=== PATIENT | female | born 1940 | race Caucasian/White ===

== ENCOUNTER 2019-01-04 16:03 | Inpatient (IN) ==
[2019-01-04] MEDS ORDERED: *HR* OxyCODONE/APAP 5/325 TABLET PO ONE (16:27)
[2019-01-04] MEDS ORDERED: Morphine Sulfate 2 MG/ML SYRINGE IVP ONE (17:40)
[2019-01-04] MEDS ORDERED: Ondansetron 4 MG/2 ML VIAL IVP ONE (18:04)
[2019-01-04 18:12] LABS: Basophils % 0.3 %; Eosinophils # 0.2 K/mcL (0.0-0.6); Eosinophils % 1.1 %; Hematocrit 32.1 % (35.3-44.9); Hemoglobin 10.1 g/dL (11.5-15.4); Immature Granulocytes % 0.4 % (0-4); Lymphocytes # 4.5 K/mcL (0.6-4.6); Lymphocytes % 33.7 %; Mean Corpuscular HGB Conc 31.5 g/dL (31.6-35.5); Mean Corpuscular Hemoglobin 27.2 pg (28.0-33.3); Mean Corpuscular Volume 86.3 fL (83.0-100.0); Mean Platelet Volume 10.6 fL (9.4-12.4); Monocytes # 0.7 K/mcL (0.0-1.3); Monocytes % 5.5 %; Neutrophils # 7.9 K/mcL (1.6-8.9); Platelet Count 195 K/mcL (140-400); Red Blood Count 3.72 M/mcL (3.82-4.97); Red Cell Distribution Width 15.6 % (11.5-14.5); White Blood Count 13.5 K/mcL (4.3-11.1)
[2019-01-04 18:20] LABS: Prothrombin Time 11.6 Seconds (9.4-12.1)
[2019-01-04 18:22] LABS: Activated Partial Thrombo Time 28.3 Seconds (26.0-36.0)
[2019-01-04 18:31] LABS: BUN/Creatinine Ratio 16 (6-26); Blood Urea Nitrogen 10 mg/dL (8-23); Calcium 9.1 mg/dL (8.6-10.3); Carbon Dioxide 25 mEq/L (23-29); Chloride 107 mEq/L (98-107); Glucose 121 mg/dL (70-105); Osmolality,Calculated 294 (280-300); Potassium 3.7 mEq/L (3.5-5.1); Sodium 142 mEq/L (136-145); eGFR For African Americans > 60 (> 60); eGFR For Non-African Americans > 60 (> 60)
--- NOTE | 2019-01-04 18:32 | Internal Med History&Physical ---
Date of Encounter: 01/04/19 Time of Encounter: 18:28 Internal Medicine - H&P: HPI Chief complaint: Left Hip pain Admitted From: Home Plans for Post Hospital Care: Home History of present illness: Ms. Prescott is a 78 year old female with past medical history significant for coronary artery disease status post coronary artery bypass graft in 2015, hypertension, diabetes, hyperlipidemia, ? TIA presents to the emergency room after a mechanical fall on her left side. Patient reports that the moving the lawnmower and it was on the slope at the house on the gravel. She reports that lawnmower was coming down on the slope and her and see how on her back on her left hip. Patient reports since then she has been having left hip pain. Patient reports of left hip pain, aching, 10 out of 10 in severity, radiates to her left leg, aggravates with movement and relieved by medications and rest. She denied any tingling, numbness, and weakness. She denies any nausea, vomiting and abdominal pain. Upon initial presentation to the emergency room patient's vitamin was stable. Patient has a x-ray done which shows some L left femoral neck fracture. Orthopedic surgery was called by ED physician. Patient received Percocet 1, and morphine 4 mg 1 in the emergency department. Past Med Surg Social Fam HX - Past Medical History Medical history: coronary artery disease, diabetes, GERD, hyperlipidemia, hypertension Additional medical history: tilit. test Psychiatric history: no psych history - Past Surgical History Surgical History: appendectomy, cataract, cholecystectomy, coronary bypass (CABG), hysterectomy - Social History Smoking Status: Never smoker Smokeless Tobacco Status: No Alcohol use: none Drug use: none - Family History Father Living Status: Hx Family Cardiac Disorders: Yes ([place]) Mother Living Status: Hx Family Cancer: Yes (colon cancer) Brother Living Status: Sister Hx Family Cardiac Disorders: Yes ([place]) Internal Medicine - H&P: Meds Aspirin Enteric Coated [Aspirin EC] 81 mg PO QAM 02/16/15 [History] Metformin [Glucophage] 500 mg PO BID 02/16/15 [History] Atorvastatin [Lipitor] 40 mg PO HS 05/15/18 [History] Levothyroxine [Synthroid] 50 mcg PO QAM 05/15/18 [History] Nitroglycerin [Nitrostat] 0.4 mg SL Q5MIN PRN 05/15/18 [History] Sertraline [Zoloft] 100 mg PO DAILY 05/15/18 [History] Temazepam [Restoril] 15 mg PO HS PRN 05/15/18 [History] Cephalexin [Keflex] 250 mg PO DAILY 12/02/18 [History] Omeprazole [PriLOSEC] 40 mg PO DAILY 12/02/18 [History] Potassium Chloride [Klor-Con 10] 10 meq PO DAILY 12/02/18 [History] Metoprolol Succinate [Toprol Xl] 25 mg PO DAILY 01/04/19 [History] Allergy/AdvReac Type Severity Reaction Status Date / Time Sulfa (Sulfonamide Allergy Anaphylaxis Verified 02/16/15 20:06 Antibiotics) isosorbide [From Imdur] AdvReac Headache Verified 12/02/18 08:34 All Systems PM: A 10-system review of systems was performed and is negative for pertinent f indings except as documented above in the HPI. - Constitutional Vitals: Temp Pulse Resp BP Pulse Ox 98.4 F 86 16 166/96 94 01/04/19 16:08 01/04/19 18:08 01/04/19 18:08 01/04/19 18:08 01/04/19 18:08 General appearance: Present: cooperative, A&O X 3 Exam: General: Ill-appearing, in acute distress, HENNT: PERRLA. Head atraumatic and makes supple Eyes: No scleral icterus CVS S1 and S2 regular, no murmur RS: Clear to air entry bilaterally, no wheeze, no crackles Abdomen: Soft and nontender. Bowel sounds normal 4 Extremities: No cyanosis, clubbing, and edema, externally rotated left lower extremity Neurology: Cranial 2 through 12 normal. Motor strength 5/5 right side. Unable to perform motor strength on the left side due to significant pain. Sensation intact Integumentary: No rash and significant bruises noted Psychiatry: A and O X 3 Internal Med - H&P Results - Labs CBC & Chem 7: 01/04/19 17:33 01/04/19 17:33 Labs: Short CBC 01/04/19 Range/Units 17:33 WBC 13.5 H (4.3-11.1) K/mcL Hgb 10.1 L (11.5-15.4) g/dL Hct 32.1 L (35.3-44.9) % Plt Count 195 (140-400) K/mcL Neutrophils # 7.9 (1.6-8.9) K/mcL - Impressions ITS Impressions Knee X-Ray 01/04/19 17:34 IMPRESSION: Unremarkable radiographs left knee. Follow-up imaging recommended if pain persists or worsens following conservative management. D/ / Placido Londono / Placido Londono Interpreting Provider: Placido Londono Pelvis X-Ray 01/04/19 17:35 IMPRESSION: Subcapital left femoral neck fracture D/ / Jeremy Gomez MD / Jeremy Gomez MD Interpreting Provider: Jeremy Gomez MD Femur X-Ray 01/04/19 17:36 IMPRESSION: Subcapital left femoral neck fracture D/ / Jeremy Gomez MD / Jeremy Gomez MD Interpreting Provider: Jeremy Gomez MD - Assessment and Plan (1) Fracture of femoral neck, closed Current Visit: Yes Status: Acute Assessment and plan: Patient presents to the emergency department after mechanical fall on the left side. Patient reports significant pain on her left hip. X-ray of the hip and femur showed subcapital left femoral neck fracture which is closed. Patient received pain medication in the emergency room. - IV hydration - IV pain medication - Orthopedic surgery on consult, planned surgery on Saturday morning on January 06. Appreciate orthopedic surgery input - Patient has a significant cardiac history. He was cardiac risk index score of 2. We will consider cardiology consult for cardiac clearance if needed tomorrow. Currently patient is not complaining of any chest pain. EKG done in the emergency room was in the sinus rhythm without any acute ischemic changes. Qualifiers: Encounter type: initial encounter Laterality: left Qualified Code(s): S72.002A - Fracture of unspecified part of neck of left femur, initial encounter for closed fracture (2) CAD (coronary artery disease) Current Visit: No Status: Chronic Assessment and plan: We will continue home medication include aspirin, statin, and metoprolol. Qualifiers: Coronary Disease-Associated Artery/Lesion type: [place] artery [place] vs. transplanted heart: [place] heart Associated angina: with stable angina Qualified Code(s): I25.118 - Atherosclerotic heart disease of [place] coronary artery with other forms of angina pectoris (3) Diabetes Current Visit: No Status: Chronic Assessment and plan: Will hold oral antidiabetic agent. Will place patient on low-dose sliding scale corrective insulin. Qualifiers: Diabetes mellitus type: type 2 Diabetes mellitus senior care insulin use: without miller [employer] use Diabetes mellitus complication status: without comp lication Qualified Code(s): E11.9 - Type 2 diabetes mellitus without comp lications (4) Hypertension Current Visit: No Status: Chronic Assessment and plan: Continue metoprolol. Qualifiers: Hypertension type: essential hypertension Qualified Code(s): I10 - Essential (primary) hypertension (5) HLD (hyperlipidemia) Current Visit: Yes Status: Acute Assessment and plan: Continue statin Qualifiers: Hyperlipidemia type: unspecified Qualified Code(s): E78.5 - Hyperlipidemia, unspecified (6) GERD (gastroesophageal reflux disease) Current Visit: No Status: Chronic Assessment and plan: Continue Prilosec Qualifiers: Esophagitis presence: esophagitis presence not specified Qualified Code(s): K21.9 - Gastro-esophageal reflux disease without esophagitis (7) DVT prophylaxis Current Visit: No Status: Acute Assessment and plan: SC Heaprin - Time Spent With Patient Total time spent is greater than 50% in coordination of care (as documented) at patient's floor/unit and/or counseling patient: Greater than 35 minutes
--- NOTE | 2019-01-04 18:39 | Emergency Department Note ---
Disposition Clinical Impression: Fracture of hip Qualifiers: Encounter type: initial encounter Fracture type: closed Laterality: left Qualified Code(s): S72.002A - Fracture of unspecified part of neck of left femur, initial encounter for closed fracture Fracture of femoral neck, closed Qualifiers: Encounter type: initial encounter Laterality: left Qualified Code(s): S72.002A - Fracture of unspecified part of neck of left femur, initial encounter for closed fracture Disposition: Admitted As Inpatient Condition: Good Referrals: NONE,PCP [Primary Care Provider] - Time of Disposition: 17:35 Lower Extremity Injury HPI - General Chief Complaint: ED Extremity Injury, Lower Stated Complaint: fall Time Seen by Provider: 01/04/19 16:11 Source: patient Limitations: no limitations Nursing Notes Reviewed: Yes Vital Signs Reviewed: Yes - History of Present Illness HPI Narrative: This is a 78-year-old female who presents today after a fall. Patient states that she was trying to move a new lawnmower that she had bought when it started rolling, causing her to lose her balance and fall. She hit her left knee and left hip area. She did not hit her head. She also hit her left elbow. She denies any loss of consciousness. Describes pain in the left hip. Describes symptoms as moderate. Pain is worse with movement. Pt Subjective Complaint: hip injury, knee injury Injury location: Left hip, Left Leg, Left knee - Related Data Home Medications Medication Instructions Recorded Confirmed Aspirin Enteric Coated [Aspirin EC] 81 mg PO QAM 02/16/15 01/04/19 Metformin [Glucophage] 500 mg PO BID 02/16/15 01/04/19 Atorvastatin [Lipitor] 40 mg PO HS 05/15/18 01/04/19 Levothyroxine [Synthroid] 50 mcg PO QAM 05/15/18 01/04/19 Nitroglycerin [Nitrostat] 0.4 mg SL Q5MIN PRN 05/15/18 01/04/19 Sertraline [Zoloft] 100 mg PO DAILY 05/15/18 01/04/19 Temazepam [Restoril] 15 mg PO QPM 05/15/18 01/04/19 Cephalexin [Keflex] 250 mg PO DAILY 12/02/18 01/04/19 Omeprazole [PriLOSEC] 40 mg PO DAILY 12/02/18 01/04/19 Potassium Chloride [Klor-Con 10] 10 meq PO DAILY 12/02/18 01/04/19 Previous Rx's Medication Instructions Recorded Metoprolol [Lopressor] 25 mg PO BID tablet 05/16/18 Allergies Allergy/AdvReac Type Severity Reaction Status Date / Time Sulfa (Sulfonamide Allergy Anaphylaxis Verified 02/16/15 20:06 Antibiotics) isosorbide [From Imdur] AdvReac Headache Verified 12/02/18 08:34 All systems ED: reviewed and negative except as stated. Constitutional: Denies: fever Cardiovascular: Denies: chest pain, palpitations Gastrointestinal: Denies: abdominal pain, nausea, vomiting Musculoskeletal: Reports: other (left hip/femur and knee pain) Neurological: Denies: headache, weakness Past Medical History - Past Medical History Medical history: Reports: coronary artery disease, diabetes, GERD, hyperlipidemia, hypertension Surgical history: Reports: appendectomy, cataract, cholecystectomy, coronary bypass (CABG), hysterectomy Psychiatric history: Reports: no psych history [employer] history: Reports: no [employer] history - Social History Smoking Status: Never smoker Smokeless Tobacco Status: No Alcohol use: Reports: none Drug use: Reports: none Physical Exam - General Limitations: no limitations General appearance: alert, in no apparent distress - Head Head exam: atraumatic, normocephalic, normal inspection - Eye Eye exam: Present: normal appearance, PERRL, EOMI - Expanded Eye Exam Pupils: Left: reactive - ENT ENT exam: normal exam, normal oropharynx, mucous membranes moist - Expanded ENT Exam External ear exam: Present: normal external inspection Mouth exam: Present: normal external inspection Teeth exam: Present: normal inspection Throat exam: Present: normal inspection - Neck Neck exam: Present: normal inspection, full ROM, trachea midline - Chest Chest inspection: Present: normal inspection, symmetric chest wall rise - Respiratory Respiratory exam: Present: normal lung sounds bilaterally - Cardiovascular Cardiovascular exam: Present: regular rate, normal rhythm, normal heart sounds - Abdominal Exam Abdominal exam: Present: soft, Non-Tender. Absent: tenderness, distention, guarding, rebound, rigidity - Extremities Exam Extremities exam: Present: normal inspection, full ROM. Absent: tenderness, pedal edema - Expanded Upper Extremity Exam Shoulder exam: Present: normal inspection, full ROM Arm exam: Present: normal inspection, full ROM Elbow exam: Present: normal inspection, full ROM, abrasion. Absent: tenderness Forearm/Wrist exam: Present: normal inspection, full ROM Hand exam: Present: normal inspection, full ROM Vascular exam: Normal: capillary refill, radial pulse - Expanded Lower Extremity Exam Hip/Pelvis exam: Present: normal inspection, tenderness. Absent: deformity, dislocation, external rotation, internal rotation, shortening Upper leg exam: Present: normal inspection, tenderness Knee exam: Present: normal inspection, tenderness Lower leg exam: Present: normal inspection, tenderness Ankle exam: Present: normal inspection, full ROM Foot/toe exam: Present: normal inspection, full ROM Neurovascular/Tendon exam: Absent: motor deficit, sensory deficit, tendon deficit - Back Exam Back exam: Present: normal inspection, full ROM. Absent: tenderness - Neurological Exam Neurological exam: Present: alert, oriented X3 - Expanded Neurological Exam Patient oriented to: Present: person, place, time Coma Scale Eye Opening: Spontaneous Coma Scale Motor Response: Obeys Commands Coma Scale Verbal Response: Oriented Coma Scale Total: 15 - Psychiatric Psychiatric exam: Present: normal affect, normal mood - Skin Skin exam: Present: warm, dry, intact, normal color Course Vital Signs Temperature 98.4 F 01/04/19 16:08 Pulse Rate 84 01/04/19 16:08 Respiratory Rate 16 01/04/19 16:08 Blood Pressure 149/67 01/04/19 16:08 O2 Sat by Pulse Oximetry 99 01/04/19 16:08 Temperature 98.4 F 01/04/19 16:08 Pulse Rate 86 01/04/19 18:08 Respiratory Rate 16 01/04/19 18:08 Blood Pressure 166/96 01/04/19 18:08 O2 Sat by Pulse Oximetry 94 01/04/19 18:08 Oxygen Delivery Oxygen Delivery Room Air Extremity Injury, Lower - MDM Narrative Medical decision making narrative: Differential diagnoses includes femur contusion versus fracture versus knee contusion versus fracture. Clinical picture suggesting mechanical fall. 1715 X-ray shows hip fracture. Patient's care discussed with Dr. Winslow. He recommended admission by the hospitalist service. He will see patient the plan to do surgery on Saturday. 1734 Patient's care discussed with the hospitalist. Will admit. - Medical Records Medical records reviewed: Yes I reviewed the patient's medical records. - Lab Data Lab results reviewed: Yes I reviewed the patient's lab results. Result diagrams: 01/04/19 17:33 01/04/19 17:33 Lab Results 01/04/19 01/04/19 01/04/19 Range/Units 17:33 17:33 17:33 WBC 13.5 H (4.3-11.1) K/mcL RBC 3.72 L (3.82-4.97) M/mcL Hgb 10.1 L (11.5-15.4) g/dL Hct 32.1 L (35.3-44.9) % MCV 86.3 (83.0-100.0) fL MCH 27.2 L (28.0-33.3) pg MCHC 31.5 L (31.6-35.5) g/dL RDW 15.6 H (11.5-14.5) % Plt Count 195 (140-400) K/mcL MPV 10.6 (9.4-12.4) fL Immature Gran % 0.4 (0-4) % Seg Neutrophils % 59.0 % Lymphocytes % 33.7 % Monocytes % 5.5 % Eosinophils % 1.1 % Basophils % 0.3 % Neutrophils # 7.9 (1.6-8.9) K/mcL Lymphocytes # 4.5 (0.6-4.6) K/mcL Monocytes # 0.7 (0.0-1.3) K/mcL Eosinophils # 0.2 (0.0-0.6) K/mcL Basophils # 0.0 (0.0-0.2) K/mcL PT 11.6 (9.4-12.1) Seconds INR 1.0 APTT 28.3 (26.0-36.0) Seconds Sodium 142 (136-145) mEq/L Potassium 3.7 (3.5-5.1) mEq/L Chloride 107 (98-107) mEq/L Carbon Dioxide 25 (23-29) mEq/L BUN 10 (8-23) mg/dL Creatinine 0.63 (0.60-1.20) mg/dL Est GFR ( Amer) > 60 (> 60) Est GFR (Non-Af Amer) > 60 (> 60) BUN/Creatinine Ratio 16 (6-26) Glucose 121 H (70-105) mg/dL Calculated Osmolality 294 (280-300) Calcium 9.1 (8.6-10.3) mg/dL - Radiology Data Radiology results reviewed: Yes I reviewed the patient's radiology results. - EKG Data EKG attestation: Yes I reviewed and interpreted this EKG.
[2019-01-04] MEDS ORDERED: Naloxone 0.4 MG/ML INJ IVP PRN (18:40)
[2019-01-04] MEDS ORDERED: Ondansetron 4 MG/2 ML VIAL IVP PRN (18:40)
[2019-01-04] MEDS ORDERED: *HR* HYDROcodone/Acet 5/325 mg TABLET PO PRN ×2 (18:40→18:51)
[2019-01-04] MEDS ORDERED: Nitroglycerin 0.4 MG TAB.SUBL SL PRN (18:47)
[2019-01-04] MEDS ORDERED: *HR* Dextrose 50 % in Water (Syg) 50 ML SYRINGE IVP PRN (18:48)
[2019-01-04] MEDS ORDERED: Dextrose Gel 15 GM/37.5 ML TUBE PO PRN ×2 (18:48)
[2019-01-04] MEDS ORDERED: D5% in Water 1,000 ML IVC PRN (18:48)
[2019-01-04] MEDS: Insulin LISPRO 300 UNITS/3 ML VIAL SQ SCH (20:29)
[2019-01-04] MEDS: *HR* OxyCODONE Immed Rel 5 MG TABLET PO PRN (21:50)
[2019-01-04] MEDS: 0.9 % Sodium Chloride 1,000 ML IVC SCH (21:51)
[2019-01-05 04:42] LABS: Basophils # 0.1 K/mcL (0.0-0.2); Basophils % 0.4 %; Eosinophils # 0.2 K/mcL (0.0-0.6); Eosinophils % 1.7 %; Hematocrit 27.2 % (35.3-44.9); Immature Granulocytes % 0.3 % (0-4); Lymphocytes # 5.9 K/mcL (0.6-4.6); Lymphocytes % 46.7 %; Mean Corpuscular HGB Conc 30.9 g/dL (31.6-35.5); Mean Corpuscular Hemoglobin 27.5 pg (28.0-33.3); Mean Corpuscular Volume 88.9 fL (83.0-100.0); Mean Platelet Volume 10.9 fL (9.4-12.4); Monocytes # 0.7 K/mcL (0.0-1.3); Monocytes % 5.6 %; Neutrophils # 5.8 K/mcL (1.6-8.9); Platelet Count 165 K/mcL (140-400); Red Blood Count 3.06 M/mcL (3.82-4.97); Red Cell Distribution Width 15.8 % (11.5-14.5); Segmented Neutrophils % 45.3 %; White Blood Count 12.7 K/mcL (4.3-11.1)
[2019-01-05 04:43] LABS: Hemoglobin 8.4 g/dL (11.5-15.4)
[2019-01-05 05:10] LABS: BUN/Creatinine Ratio 15 (6-26); Blood Urea Nitrogen 9 mg/dL (8-23); Calcium 8.4 mg/dL (8.6-10.3); Carbon Dioxide 28 mEq/L (23-29); Chloride 107 mEq/L (98-107); Glucose 109 mg/dL (70-105); Osmolality,Calculated 293 (280-300); Potassium 3.7 mEq/L (3.5-5.1); Sodium 142 mEq/L (136-145); eGFR For African Americans > 60 (> 60); eGFR For Non-African Americans > 60 (> 60)
[2019-01-05] MEDS: *HR* OxyCODONE Immed Rel 5 MG TABLET PO PRN ×4 (05:35→20:12)
--- NOTE | 2019-01-05 07:24 | Orthopedic Consult Note ---
Date of Encounter: 01/05/19 Time of Encounter: 07:21 Assessment and Plan (1) Fracture of femoral neck, closed Current Visit: Yes Status: Acute I did have a long discussion with the patient regarding the diagnosis. She does have a displaced left femoral neck fracture. My recommendation is to proceed with left hip hemiarthroplasty in order to stabilize the left proximal femur and allow for early mobilization. The risks discussed included but were not limited to stiffness, bleeding, infection, blood clots, damage to neurovascular structures, tendons, ligaments, and bone. Also discussed was the risk of continued symptoms and possible need for further procedures. I did discuss the anesthesia risks including stroke, heart attack, and . I did discuss the reasonable, foreseeable postoperative course with the patient. The patient did wish to proceed and consent was obtained. I have reviewed each of the pertinent components of this chart and any other pertinent medical component(s) including but not limited to pertinent application of the chief complaint, history of present illness, current medication, medical history, allergies, family history, medical history, surgical history, social history, review of systems, vital signs, and any other portion of the pertinent patient medical record directly or indirectly involved with this patient care that is pertinent based on my medical decision process. JOHNNY Arnold Qualifiers: Encounter type: initial encounter Laterality: left Qualified Code(s): S72.002A - Fracture of unspecified part of neck of left femur, initial encounter for closed fracture History of Present Illness HPI: Ms. Prescott is a 78 year old female currently admitted to the hospitalist with a left displaced femoral neck fracture. She sustained the injury while trying to unload a riding mower when she lost her balance. She sustained a left displaced femoral neck fracture. She complains of isolated pain to the left hip, sharp and achy and worse with use and movement and better with rest. No numbness, tingling, or any other associated signs or symptoms or modifying factors. No other injuries. Past Med Surg Social Fam HX - Past Medical History Medical history: coronary artery disease, diabetes, GERD, hyperlipidemia, hypertension Additional medical history: tilit. test Psychiatric history: anxiety - Past Surgical History Surgical History: appendectomy, cataract, cholecystectomy, coronary bypass (CABG), hysterectomy - Social History Smoking Status: Never smoker Smokeless Tobacco Status: No Alcohol use: none Drug use: none - Family History Father Living Status: Hx Family Cardiac Disorders: Yes ([place]) Mother Living Status: Hx Family Cancer: Yes (colon cancer) Brother Living Status: Sister Hx Family Cardiac Disorders: Yes ([place]) Medications and Allergies Aspirin Enteric Coated [Aspirin EC] 81 mg PO QAM 02/16/15 [History] Metformin [Glucophage] 500 mg PO BID 02/16/15 [History] Atorvastatin [Lipitor] 40 mg PO HS 05/15/18 [History] Levothyroxine [Synthroid] 50 mcg PO QAM 05/15/18 [History] Nitroglycerin [Nitrostat] 0.4 mg SL Q5MIN PRN 05/15/18 [History] Sertraline [Zoloft] 100 mg PO DAILY 05/15/18 [History] Temazepam [Restoril] 15 mg PO HS PRN 05/15/18 [History] Cephalexin [Keflex] 250 mg PO DAILY 12/02/18 [History] Omeprazole [PriLOSEC] 40 mg PO DAILY 12/02/18 [History] Potassium Chloride [Klor-Con 10] 10 meq PO DAILY 12/02/18 [History] Metoprolol Succinate [Toprol Xl] 25 mg PO DAILY 01/04/19 [History] Allergy/AdvReac Type Severity Reaction Status Date / Time Sulfa (Sulfonamide Allergy Anaphylaxis Verified 02/16/15 20:06 Antibiotics) isosorbide [From Imdur] AdvReac Headache Verified 12/02/18 08:34 All Systems Reviewed: Constitutional -The patient denies any fevers, chills, or feelings of illness Neurologic -The patient denies any numbness, tingling, or burning pains Physical Exam - Constitutional Vitals: Temp Pulse Resp BP Pulse Ox 98.9 F 69 20 108/65 94 01/05/19 03:52 01/05/19 03:52 01/05/19 03:52 01/05/19 03:52 01/05/19 03:52 Constitutional -Vitals reviewed -The patient is well developed and well nourished. -Mood is pleasant. -The patient is well groomed. Psychiatric -The patient is fully alert and oriented x 3. Respiratory: -Respiratory effort normal Abdomen: -Soft abdomen -Non tender -Non distended: Left upper extremity: -No deformities. The overlying skin is intact. No obvious signs of acute trauma. -No tenderness to palpation throughout. -No significant pain with passive motion of the shoulder, elbow, wrist, and fingers within the limits of the bed. -Able to make an "OK" sign, cross the index and long fingers, and extend the thumb. -Sensation grossly intact to light touch throughout the median, radial, and ulnar distributions. -Radial pulse is present; Fingers have good capillary refill. Right upper extremity: -No deformities. The overlying skin is intact. No obvious signs of acute trauma. -No tenderness to palpation throughout. -No significant pain with passive motion of the shoulder, elbow, wrist, and fingers within the limits of the bed. -Able to make an "OK" sign, cross the index and long fingers, and extend the thumb. -Sensation grossly intact to light touch throughout the median, radial, and ulnar distributions. -Radial pulse is present; Fingers have good capillary refill. Left lower extremity: -The extremity is shortened and externally rotated. The overlying skin is int act. -There is tenderness in the groin region as well as the proximal lateral thigh. -I did not range the hip due to the known fracture. -No tenderness along the distal thigh, leg, ankle, foot, or toes. -Able to dorsiflex and plantarflex the ankle and toes. -Sensation is grossly intact to light touch throughout the sural, saphenous, superficial peroneal, and deep peroneal distributions. -Toes have good capillary refill. Right lower extremity: -No deformities. The overlying skin is intact. No obvious signs of acute trauma. -No tenderness to palpation throughout. -No pain with passive motion of the hip, knee, ankle, and toes within the limits of the bed. -No pain with axial loading of the thigh. -Able to dorsiflex and plantarflex the ankle and toes. -Sensation is grossly intact to light touch throughout the sural, saphenous, superficial peroneal, and deep peroneal distributions. -Toes have good capillary refill. Diagnostic Imaging: I did personally review and interpret x-rays of the left femur and x-rays of the pelvis show a displaced femoral neck fracture on the left. Results - Labs Result Diagrams: 01/05/19 04:05 01/05/19 04:05 Labs: Abnormal lab results WBC 12.7 K/mcL (4.3-11.1) H 01/05/19 04:05 RBC 3.06 M/mcL (3.82-4.97) L 01/05/19 04:05 Hgb 8.4 g/dL (11.5-15.4) L D 01/05/19 04:05 Hct 27.2 % (35.3-44.9) L 01/05/19 04:05 MCH 27.5 pg (28.0-33.3) L 01/05/19 04:05 MCHC 30.9 g/dL (31.6-35.5) L 01/05/19 04:05 RDW 15.8 % (11.5-14.5) H 01/05/19 04:05 Lymphocytes # 5.9 K/mcL (0.6-4.6) H 01/05/19 04:05 Glucose 109 mg/dL (70-105) H 01/05/19 04:05 POC Glucose 129 mg/dL (70-99) H 01/04/19 20:49 Calcium 8.4 mg/dL (8.6-10.3) L 01/05/19 04:05 H & H 01/04/19 01/05/19 Range/Units 17:33 04:05 Hgb 10.1 L 8.4 L D (11.5-15.4) g/dL Hct 32.1 L 27.2 L (35.3-44.9) % All other labs normal. Consult Discharge Plan - Plan Referrals: NONE,PCP [Primary Care Provider] -
[2019-01-05] MEDS: Insulin LISPRO 300 UNITS/3 ML VIAL SQ SCH ×3 (09:08→17:43)
[2019-01-05] MEDS: Aspirin Enteric Coated 81 MG Tablet PO SCH (09:13)
--- NOTE | 2019-01-05 12:18 | Internal Med Progress Note ---
Hospitalist Progress Note - Encounter Date of Encounter: 01/05/19 Time of Encounter: 12:15 - Subjective Interval History: Pt was seen and examined at bed side. Pt rpoerts of left hip pain which is not being well controlled. Apart from these, she denies any fever, chills, nausea, vomiting, abdominal pain, chest pain , palpitations, and ANITA. - Exam Vitals: Temp Pulse Resp BP Pulse Ox 98.5 F 77 18 122/69 87 01/05/19 11:25 01/05/19 11:25 01/05/19 11:25 01/05/19 11:01/05/19 11:25 Exam: General: Ill-appearing, in acute distress, HENNT: PERRLA. Head atraumatic and makes supple Eyes: No scleral icterus CVS S1 and S2 regular, no murmur RS: Clear to air entry bilaterally, no wheeze, no crackles Abdomen: Soft and nontender. Bowel sounds normal 4 Extremities: No cyanosis, clubbing, and edema, externally rotated left lower extremity Neurology: Cranial 2 through 12 normal. Motor strength 5/5 right side. Unable to perform motor strength on the left side due to significant pain. Sensation intact Integumentary: No rash and significant bruises noted Psychiatry: A and O X 3 - Assessment and Plan (1) Fracture of femoral neck, closed Current Visit: Yes Status: Acute Assessment and Plan: Patient is s/p mechanical fall. Pt has left femoral neck fracture, closed. Surgery is on consult. Orthopedic surgery is on consult. Plan is to do surgery tomorrow - Continue pain management - NPO after midnight (2) Preop cardiovascular exam Current Visit: Yes Status: Acute Assessment and Plan: Patient has a history CAD, s/p CABG. Pt denies any chest pain and ANITA. Pre op ekg was in sinus rhytham and without any acute ischemic changes. Pt is high risk due to cardiovascular medical history who is going to urgent low to intermdeiate risk surgery. Pt functional capacity METS is 4. (3) CAD (coronary artery disease) Current Visit: No Status: Chronic Assessment and Plan: We will continue home medication include aspirin, statin, and metoprolol. (4) Diabetes Current Visit: No Status: Chronic Assessment and Plan: Continue low-dose sliding scale corrective insulin. (5) Hypertension Current Visit: No Status: Chronic Assessment and Plan: Continue metoprolol. (6) HLD (hyperlipidemia) Current Visit: Yes Status: Acute Assessment and Plan: Continue statin (7) GERD (gastroesophageal reflux disease) Current Visit: No Status: Chronic Assessment and Plan: Continue Prilosec (8) DVT prophylaxis Current Visit: No Status: Acute Assessment and Plan: SC Heaprin - Time Spent with Patient Total time spent is greater than 50% in coordination of care (as documented) at patient's floor/unit and/or counseling patient: 25 - 35 minutes Internal Medicine: Result - Labs CBC & Chem 7: 01/05/19 04:05 01/05/19 04:05 Labs: Short CBC 01/04/19 01/05/19 Range/Units 17:33 04:05 WBC 13.5 H 12.7 H (4.3-11.1) K/mcL Hgb 10.1 L 8.4 L D (11.5-15.4) g/dL Hct 32.1 L 27.2 L (35.3-44.9) % Plt Count 195 165 (140-400) K/mcL Neutrophils # 7.9 5.8 (1.6-8.9) K/mcL BMP 01/04/19 01/05/19 17:33 04:05 Sodium 142 142 Potassium 3.7 3.7 Chloride 107 107 Carbon Dioxide 25 28 BUN 10 9 Creatinine 0.63 0.61 Glucose 121 H 109 H Calcium 9.1 8.4 L Cardiac Enzymes 01/04/19 Range/Units 17:33 Troponin I < 0.03 (< 0.04) ng/mL - ABG Interpretation ABG results: PT/INR, D-dimer PT 11.6 Seconds (9.4-12.1) 01/04/19 17:33 - Impressions Impressions Knee X-Ray 01/04/19 17:34 IMPRESSION: Unremarkable radiographs left knee. Follow-up imaging recommended if pain persists or worsens following conservative management. D/ / Placido Londono / Placido Londono Interpreting Provider: Placido Londono Pelvis X-Ray 01/04/19 17:35 IMPRESSION: Subcapital left femoral neck fracture D/ / Jeremy Gomez MD / Jeremy Gomez MD Interpreting Provider: Jeremy Gomez MD Femur X-Ray 01/04/19 17:36 IMPRESSION: Subcapital left femoral neck fracture D/ / Jeremy Gomez MD / Jeremy Gomez MD Interpreting Provider: Jeremy Gomez MD Consult Discharge Plan - Plan Referrals: NONE,PCP [Primary Care Provider] - (1) Fracture of femoral neck, closed Qualifiers: Encounter type: initial encounter Laterality: left Qualified Code(s): S72.002A - Fracture of unspecified part of neck of left femur, initial encounter for closed fracture (3) CAD (coronary artery disease) Qualifiers: Coronary Disease-Associated Artery/Lesion type: [place] artery [place] vs. tra nsplanted heart: [place] heart Associated angina: with stable angina Qualified Code(s): I25.118 - Atherosclerotic heart disease of [place] coronary artery with other forms of angina pectoris (4) Diabetes Qualifiers: Diabetes mellitus type: type 2 Diabetes mellitus senior care insulin use: without superintendent marine oil terminal use Diabetes mellitus complication status: without complication Qualified Code(s): E11.9 - Type 2 diabetes mellitus without complications (5) Hypertension Qualifiers: Hypertension type: essential hypertension Qualified Code(s): I10 - Essential (primary) hypertension (6) HLD (hyperlipidemia) Qualifiers: Hyperlipidemia type: unspecified Qualified Code(s): E78.5 - Hyperlipidemia, unspecified (7) GERD (gastroesophageal reflux disease) Qualifiers: Esophagitis presence: esophagitis presence not specified Qualified Code(s): K21.9 - Gastro-esophageal reflux disease without esophagitis
--- NOTE | 2019-01-05 13:30 | Electrocardiograph Report ---
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
[2019-01-05] MEDS ORDERED: Temazepam 15 MG CAPSULE PO SCH (18:00)
[2019-01-05] MEDS: 0.9 % Sodium Chloride 1,000 ML IVC SCH (21:48)
[2019-01-06] MEDS ORDERED: Acetaminophen IV 500 MG/50 ML INFUS..BTL IVPB ONE (04:20)
[2019-01-06 05:13] LABS: Bilirubin,Urine Negative (Negative); Blood,Urine Large (Negative); Clarity,Urine Cloudy (Clear); Color,Urine Yellow (Yellow); Glucose,Urine (UA) Normal (Normal); Ketones,Urine Negative (Negative); Leukocyte Esterase,Urine Trace (Negative); Nitrite,Urine Positive (Negative); PH,Urine 6.5 pH Units (5.0-8.0); Protein,Urine Trace mg/dL (Neg-Trace); Specific Gravity,Urine 1.017 (1.010-1.025); Urobilinogen,Urine Normal (Normal)
[2019-01-06 05:16] LABS: Hyaline Casts,Urine Few per lpf (None-Few); WBC,Urine 15-30 per hpf (0-3)
[2019-01-06 05:25] LABS: Bacteria,Urine Few per hpf (None-Few); RBC,Urine 15-30 per hpf (0-3); Squamous Epithelial Cell,Urine Moderate per lpf (None-Few); Yeast,Urine Many per hpf (None Seen)
--- NOTE | 2019-01-06 05:40 | Event Note ---
Date of Encounter: 01/06/19 Time of Encounter: 04:19 Alerted by charge nurse MIGUEL Gonzalez that the pts. urine appeared "dirty". Stat U/A w/reflex micro and culture ordered which returned as positive. Consider adding abx coverage starting today for UTI. Nurse instructed to continue monitoring this pt. very closely and alert me immediately of any adverse changes.
[2019-01-06 05:42] LABS: Basophils # 0.1 K/mcL (0.0-0.2); Basophils % 0.4 %; Eosinophils # 0.3 K/mcL (0.0-0.6); Eosinophils % 2.1 %; Hematocrit 29.5 % (35.3-44.9); Hemoglobin 9.1 g/dL (11.5-15.4); Immature Granulocytes % 0.4 % (0-4); Lymphocytes # 3.4 K/mcL (0.6-4.6); Lymphocytes % 25.7 %; Mean Corpuscular HGB Conc 30.8 g/dL (31.6-35.5); Mean Corpuscular Hemoglobin 26.8 pg (28.0-33.3); Mean Platelet Volume 11.3 fL (9.4-12.4); Monocytes % 7.6 %; Neutrophils # 8.5 K/mcL (1.6-8.9); Platelet Count 141 K/mcL (140-400); Red Blood Count 3.39 M/mcL (3.82-4.97); Red Cell Distribution Width 15.7 % (11.5-14.5); Segmented Neutrophils % 63.8 %; White Blood Count 13.4 K/mcL (4.3-11.1)
[2019-01-06 06:05] LABS: BUN/Creatinine Ratio 13 (6-26); Blood Urea Nitrogen 8 mg/dL (8-23); Calcium 8.6 mg/dL (8.6-10.3); Carbon Dioxide 26 mEq/L (23-29); Chloride 103 mEq/L (98-107); Glucose 141 mg/dL (70-105); Osmolality,Calculated 287 (280-300); Potassium 3.8 mEq/L (3.5-5.1); Sodium 138 mEq/L (136-145); eGFR For African Americans > 60 (> 60); eGFR For Non-African Americans > 60 (> 60)
--- NOTE | 2019-01-06 07:29 | Orthopedics Progress Note ---
Date of Encounter: 01/06/19 Time of Encounter: 07:27 - Assessment and Plan (1) Fracture of femoral neck, closed Current Visit: Yes Status: Acute Qualifiers: Encounter type: initial encounter Laterality: left Qualified Code(s): S72.002A - Fracture of unspecified part of neck of left femur, initial encounter for closed fracture Subjective Interval history: S: Resting comfortably in bed without complaint Expected the pain to the left hip. O: Afebrile and vital signs are stable Left hip shortened and externally rotated. NV intact A: Left displaced femoral neck fracture P: Plan for left hip hemiarthroplasty today. Objective Vital signs: Vital Signs Temp Pulse Resp BP Pulse Ox 01/06/19 06:46 98.6 F 87 16 127/75 94 01/06/19 04:05 100.6 F H 01/06/19 03:05 99.3 F 80 18 143/82 92 01/05/19 22:42 99.7 F H 79 17 152/83 92 01/05/19 18:26 98.6 F 77 16 146/75 93 01/05/19 16:10 99.0 F 74 16 139/67 93 01/05/19 11:25 98.5 F 77 18 122/69 87 01/05/19 10:05 98.5 F 81 16 122/73 91 Intake and Output 01/05/19 01/05/19 01/06/19 15:59 23:59 07:59 Intake Total 1000 / 1000 50 / 50 Output Total 150 / 425 275 / 425 450 / 450 Balance -150 / 575 725 / 575 -400 / -400 Intake: IV Fluids 1000 / 1000 50 / 50 0.9 % Sodium Chloride 1,000 ML 1000 / 1000 @ 40 mls/hr IVC .Q24H [facility] Rx#: [id number] Ofirmev 1,000 mg/100 ml 500 mg 50 / 50 In 50 ml @ 200 mls/hr IVPB ONCE ONE Rx#:[id number] Output: Catheter 150 / 425 275 / 425 450 / 450 Other: Weight 59.7 kg Blood Glucose* 114 161 Patient Weight 01/06/19 23:59 Weight 59.7 kg - Labs CBC & BMP: 01/06/19 05:10 01/06/19 05:10 Labs: Abnormal lab results WBC 13.4 K/mcL (4.3-11.1) H 01/06/19 05:10 RBC 3.39 M/mcL (3.82-4.97) L 01/06/19 05:10 Hgb 9.1 g/dL (11.5-15.4) L 01/06/19 05:10 Hct 29.5 % (35.3-44.9) L 01/06/19 05:10 MCH 26.8 pg (28.0-33.3) L 01/06/19 05:10 MCHC 30.8 g/dL (31.6-35.5) L 01/06/19 05:10 RDW 15.7 % (11.5-14.5) H 01/06/19 05:10 Lymphocytes # 5.9 K/mcL (0.6-4.6) H 01/05/19 04:05 Glucose 141 mg/dL (70-105) H 01/06/19 05:10 POC Glucose 161 mg/dL (70-99) H 01/05/19 19:47 Calcium 8.4 mg/dL (8.6-10.3) L 01/05/19 04:05 Urine Clarity Cloudy (Clear) A 01/06/19 05:07 Urine Blood Large (Negative) H 01/06/19 05:07 Urine Nitrite Positive (Negative) A 01/06/19 05:07 Ur Leukocyte Esterase Trace (Negative) H 01/06/19 05:07 Urine Microscopic RBC 15-30 per hpf (0-3) H 01/06/19 05:07 Urine Microscopic WBC 15-30 per hpf (0-3) H 01/06/19 05:07 Ur Squamous Epith Cells Moderate per lpf (None-Few) H 01/06/19 05:07 Urine Yeast Many per hpf (None Seen) H 01/06/19 05:07 Ur Culture Indicated? YES (NO) A 01/06/19 05:07 Consult Discharge Plan - Plan Referrals: NONE,PCP [Primary Care Provider] -
[2019-01-06] MEDS: Aspirin Enteric Coated 81 MG Tablet PO SCH (08:44)
[2019-01-06] MEDS: *HR* OxyCODONE Immed Rel 5 MG TABLET PO PRN (08:52)
--- NOTE | 2019-01-06 13:22 | Anesthesia Evaluation PreOp ---
Date of Encounter: 01/06/19 Time of Encounter: 13:20 - Past History Planned Operation: Left hemiarthroplasty hip Cardiac History: HTN, Hyperlipidemia, Cardiac Surgery (CABG 2014) Pulmonary History: Denies Any Significant HX STUDY ABROAD COORDINATOR History: Denies Any Significant HX Other Medical History: Diabetes Type II, Thyroid (hypo), GERD Anesthesia History: No Prior Anesthetic Complications, Past Anesthesia (CABG) Alcohol Use: none Drug use: none Medications and Allergies Aspirin Enteric Coated [Aspirin EC] 81 mg PO QAM 02/16/15 [History] Metformin [Glucophage] 500 mg PO BID 02/16/15 [History] Atorvastatin [Lipitor] 40 mg PO HS 05/15/18 [History] Levothyroxine [Synthroid] 50 mcg PO QAM 05/15/18 [History] Nitroglycerin [Nitrostat] 0.4 mg SL Q5MIN PRN 05/15/18 [History] Sertraline [Zoloft] 100 mg PO DAILY 05/15/18 [History] Temazepam [Restoril] 15 mg PO HS PRN 05/15/18 [History] Cephalexin [Keflex] 250 mg PO DAILY 12/02/18 [History] Omeprazole [PriLOSEC] 40 mg PO DAILY 12/02/18 [History] Potassium Chloride [Klor-Con 10] 10 meq PO DAILY 12/02/18 [History] Metoprolol Succinate [Toprol Xl] 25 mg PO DAILY 01/04/19 [History] Allergy/AdvReac Type Severity Reaction Status Date / Time Sulfa (Sulfonamide Allergy Anaphylaxis Verified 02/16/15 20:06 Antibiotics) isosorbide [From Imdur] AdvReac Headache Verified 12/02/18 08:34 - Meds/Allergy Pre-op Review Medications Reviewed: Yes Allergies Reviewed: Yes Beta Blockers on Current Med List: Yes If Beta Blockers taken, Date/Time (Last Dose taken): 847am today Anesthesia Results - Labs 01/06/19 05:10 01/06/19 05:10 - Imaging EKG: report reviewed (Interpretive Statements Sinus rhythm left atrial enlargement BASELINE ARTIFACT Electronically Signed On 01-05-2019 13:28:48 EDT by Bernabe Salazar) Additional studies: [facility] 12/02/18 Procedures Performed: LEFT HEART CATH W/ GRAFTS Indications: Other- Unstable Angina Impressions: Double vessel coronary artery disease. The left ventricle is normal and has normal contractility EF 60% S/P CABG 3 of 3 patent bypass grafts. Recommendations: Optimal medical therapy of patient's disease. Aggressive risk factor modification. Anesthesia Exam Vital Signs/O2 Sat, Most Current Temp Pulse Resp BP Pulse Ox 98.4 F 73 16 128/70 95 01/06/19 11:58 01/06/19 11:58 01/06/19 11:58 01/06/19 11:58 01/06/19 11:58 Weight: 59kg NPO (# of Hours): >8 - HEENT Pupil (Motor): Pupils equal, EOMI Mallampati: II Teeth: Missing Denture Type: Upper: Partial Oral Opening: Greater than 3 - STUDY ABROAD COORDINATOR LOC: Oriented STUDY ABROAD COORDINATOR Motor: Normal RUE, Normal LUE, Normal RLE, Normal LLE, Normal Face STUDY ABROAD COORDINATOR Sensory: Normal: RUE, LUE, RLE, LLE, Face - Cardiac Rhythm: Regular - Pulmonary Breath Sounds: bilateral Clear Respiratory Effort: Symmetrical Anesthesia Assess/Plan ASA Score: 3 Level of consciousness: Cooperative Anesthetic Plan: General Monitoring Plan: Standard Monitors Recovery Plan: PACU
[2019-01-06] MEDS ORDERED: *HR* FentaNYL (PF) 100 MCG/2 ML VIAL IVP PRN ×2 (13:26→17:00)
[2019-01-06] MEDS ORDERED: *HR* OxyCODONE Immed Rel 5 MG TABLET PO PRN ×2 (13:26→17:00)
[2019-01-06] MEDS ORDERED: Acetaminophen IV 1,000 MG/100 ML INFUS..BTL ONE (14:02)
[2019-01-06] MEDS ORDERED: CeFAZolin Syr 2,000MG/20 ML 2,000 MG/20 ML SYRINGE IVPB ONE (14:04)
[2019-01-06] MEDS ORDERED: Ethanol\\Acetic Acid\\Na Ace\\Ben 1,000 ML IRRIG.SOLN IR ONE (14:19)
[2019-01-06] MEDS ORDERED: Lidocaine -MPF 2% 2 ML VIAL ONE (14:22)
[2019-01-06] MEDS ORDERED: Ondansetron 4 MG/2 ML VIAL ONE (14:22)
[2019-01-06] MEDS ORDERED: *HR* Propofol 200 MG/20 ML VIAL IVP ONE (14:22)
[2019-01-06] MEDS ORDERED: *HR* FentaNYL (PF) 100 MCG/2 ML VIAL ONE (14:22)
[2019-01-06] MEDS ORDERED: *HR* Succinylcholine 200 MG/10 ML VIAL IVP ONE (14:25)
[2019-01-06] MEDS ORDERED: Vancomycin 1,000 MG VIAL ONE (14:41)
--- NOTE | 2019-01-06 15:22 | Internal Med Progress Note ---
Hospitalist Progress Note - Encounter Date of Encounter: 01/06/19 Time of Encounter: 10:00 - Subjective Interval History: She was seen and examined at bedside this morning. Patient reports her pain is better controlled than yesterday. Patient reports of left hip pain. Pain is 6 out of 10 in severity, acting, shooting down her leg, and worsens with movement. Patient denies any fever and chills. - Exam Vitals: Temp Pulse Resp BP Pulse Ox 98.4 F 73 16 128/70 95 01/06/19 11:58 01/06/19 11:58 01/06/19 11:58 01/06/19 11:58 01/06/19 11:58 Exam: General: Ill-appearing, in acute distress, HENNT: PERRLA. Head atraumatic and makes supple Eyes: No scleral icterus CVS S1 and S2 regular, no murmur RS: Clear to air entry bilaterally, no wheeze, no crackles Abdomen: Soft and nontender. Bowel sounds normal 4 Extremities: No cyanosis, clubbing, and edema, externally rotated left lower extremity Neurology: Cranial 2 through 12 normal. Motor strength 5/5 right side. Unable to perform motor strength on the left side due to significant pain. Sensation intact Integumentary: No rash and significant bruises noted Psychiatry: A and O X 3 - Assessment and Plan (1) Fracture of femoral neck, closed Current Visit: Yes Status: Acute Assessment and Plan: Patient is status post mechanical fall. Patient had fracture of femoral neck on the left side. Patient is undergoing surgery today. PT and OT consult after surgery. Anticipate discharge in the broad-based. Most likely will need assisted facility placement. (2) CAD (coronary artery disease) Current Visit: No Status: Chronic Assessment and Plan: We will continue home medication include aspirin, statin, and metoprolol. (3) Diabetes Current Visit: No Status: Chronic Assessment and Plan: Continue low-dose sliding scale corrective insulin. (4) Hypertension Current Visit: No Status: Chronic Assessment and Plan: Continue metoprolol. (5) HLD (hyperlipidemia) Current Visit: Yes Status: Acute Assessment and Plan: Continue statin (6) GERD (gastroesophageal reflux disease) Current Visit: No Status: Chronic Assessment and Plan: Continue Prilosec (7) DVT prophylaxis Current Visit: No Status: Acute Assessment and Plan: SC Heaprin - Time Spent with Patient Total time spent is greater than 50% in coordination of care (as documented) at patient's floor/unit and/or counseling patient: 25 - 35 minutes Plan of Care Discussed with: patient Internal Medicine: Result - Labs CBC & Chem 7: 01/06/19 05:10 01/06/19 05:10 Labs: Short CBC 01/06/19 Range/Units 05:10 WBC 13.4 H (4.3-11.1) K/mcL Hgb 9.1 L (11.5-15.4) g/dL Hct 29.5 L (35.3-44.9) % Plt Count 141 (140-400) K/mcL Neutrophils # 8.5 (1.6-8.9) K/mcL BMP 01/06/19 05:10 Sodium 138 Potassium 3.8 Chloride 103 Carbon Dioxide 26 BUN 8 Creatinine 0.62 Glucose 141 H Calcium 8.6 Urine 01/06/19 Range/Units 05:07 Urine Color Yellow (Yellow) Urine Clarity Cloudy A (Clear) Urine pH 6.5 (5.0-8.0) pH Units Ur Specific [place] 1.017 (1.010-1.025) Urine Protein Trace (Neg-Trace) mg/dL Urine Glucose (UA) Normal (Normal) mg/dL - ABG Interpretation ABG results: PT/INR, D-dimer PT 11.6 Seconds (9.4-12.1) 01/04/19 17:33 - Impressions Impressions Chest X-Ray 01/06/19 05:02 IMPRESSION: No acute process. D/ / Coy Wyatt MD / Coy Wyatt MD Interpreting Provider: Coy Wyatt MD Consult Discharge Plan - Plan Referrals: NONE,PCP [Primary Care Provider] - (1) Fracture of femoral neck, closed Qualifiers: Encounter type: initial encounter Laterality: left Qualified Code(s): S72.002A - Fracture of unspecified part of neck of left femur, initial encounter for closed fracture (2) CAD (coronary artery disease) Qualifiers: Coronary Disease-Associated Artery/Lesion type: [place] artery [place] vs. mcdaniel splanted heart: [place] heart Associated angina: with stable angina Qualified Code(s): I25.118 - Atherosclerotic heart disease of [place] coronary artery with other forms of angina pectoris (3) Diabetes Qualifiers: Diabetes mellitus type: type 2 Diabetes mellitus nursing home insulin use: without intermediate school teacher use Diabetes mellitus complication status: without complication Qualified Code(s): E11.9 - Type 2 diabetes mellitus without complications (4) Hypertension Qualifiers: Hypertension type: essential hypertension Qualified Code(s): I10 - Essential (primary) hypertension (5) HLD (hyperlipidemia) Qualifiers: Hyperlipidemia type: unspecified Qualified Code(s): E78.5 - Hyperlipidemia, unspecified (6) GERD (gastroesophageal reflux disease) Qualifiers: Esophagitis presence: esophagitis presence not specified Qualified Code(s): K21.9 - Gastro-esophageal reflux disease without esophagitis
[2019-01-06] MEDS ORDERED: Ketorolac 30 MG/ML VIAL ONE (16:01)
--- NOTE | 2019-01-06 16:20 | Orthopedic Operative Note ---
Date of procedure: 01/06/19 Procedure: OPERATIVE REPORT DATE OF PROCEDURE: 01/06/2018 SURGEON: Lorenzo Winslow MD SPORTS MARKETING SPECIALIST(S): There are no assistants PREOPERATIVE DIAGNOSIS: Left displaced femoral neck fracture POSTOPERATIVE DIAGNOSIS: Left displaced femoral neck fracture PROCEDURE: Left hip hemiarthroplasty ANESTHESIA: Gen. anesthesia PREOPERATIVE ANTIBIOTICS: 2 grams of Ancef ESTIMATED BLOOD LOSS: 300 milliliters SPECIMENS: Left IMPLANTS: Depuy your Corail left hip bipolar hemiarthroplasty with a 42 mm head and size 10 stem with -6 neck length PREOPERATIVE NOTE AND INDICATIONS: The surgical plan was discussed with the patient. The risks, benefits, alternatives, and potential complications of this procedure were discussed with the patient including injury to veins, arteries, nerves, tendons, ligaments, and bone. Also discussed were the risks of infection, bleeding, pain, blood clots, the possible need for a blood transfusion, the possible need for further procedures, heart attack, stroke, and . Additional risks including dislocation, periprosthetic fracture, and prosthetic infection. All of this was explained in simple terms, and the patient verbalized understanding and wished to proceed. Consent was given to proceed with surgery. PROCEDURE: The patient was seen in the preoperative holding area where the identify and the consent were confirmed. The left hip was marked. Final questions were answered. The patient was brought back to the operating room. A huddle was performed with the patient and all vital surgical team members confirming patient identity, the correct procedure, and the correct operative site. General anesthesia was administered. The patient was placed supine on the operating room table and then placed in the right lateral decubitus position. The axillary roll was placed and all bony prominences were padded. The left lower extremity was prepped and draped in the usual sterile fashion. A surgical time out was performed immediately preceding the incision with all personnel in the operating room to confirm patient identity, the correct operative site and extremity, correct radiographic studies, availability of appropriate surgical equipment, and agreement on the planned procedure. A 15 cm longitudinal curvilinear incision was made and dissection proceeded through the subcutaneous tissue using a Bovie for electrocautery. The fascia was encountered and incised splitting the fibers of the gluteus vineet proximally. The Charnley retractor was placed. A Cobra was placed under the gluteus medius and the piriformis was taken down and tagged. While internally rotating the femur the short external rotators and the capsule was taken down in 1 sleeve. This exposed the fracture and an osteotomy was made 1 cm above the lesser trochanter. The femoral head was removed with a corkscrew. Pulvinar and the round ligament were debrided. The cartilage of the acetabulum was intact. The femoral head was sized and the 42 mm sizer fit appropriately. The femoral shaft was elevated and a box osteotome was used to lateralize. Broaching commenced and the 10 broach fit nicely and had good rotational stability. The trial head and neck were placed and the hip was articulated and felt to be accurate length. The hip was stable through a functional range of motion. The anterior capsule was quite tight with both a standard and -3 necks and therefore the -6 bipolar was used with good fit. The hip was disarticulated and the trial components were removed. The hip was washed with 3 L of saline. The definitive stem was tapped into position, and the definitive head was impacted onto the Raza taper. The hip was articulated and noted to be stable through a functional range of motion. After final irrigation 1 g of vancomycin powder was placed into the hip joint and the capsule was closed with FiberWire stitches through the gluteus medius insertion. The Charnley retractor was removed and the wound was irrigated and the fascia closed with 0 Vicryl stitches and running barbed stitch. The skin was closed with a combination of 0 Vicryl, 3-0 Vicryl, and karen. A sterile honeycomb dressing was applied. The patient was placed supine in her hospital bed. The instrument, sponge, and needle counts were correct after wound closure. POST OPERATIVE PLAN: Weight bearing tolerated on the bilateral lower extremities, therapy, and aspirin for DVT prophylaxis unless there are contraindications from a medical standpoint. Was there an under water assistant present: No Estimated blood loss (cc): 1
[2019-01-06] MEDS ORDERED: Ringers Solution, Lactated 1,000 ML IVC SCH ×2 (16:30→17:00)
--- NOTE | 2019-01-06 16:48 | Anesthesia Evaluation Post Op ---
Date of Encounter: 01/06/19 Time of Encounter: 16:48 - Vital Signs Vital Signs: Vital Signs/O2 Sat, Most Current Temp Pulse Resp BP Pulse Ox 99.6 F 75 16 111/49 93 01/06/19 16:15 01/06/19 16:25 01/06/19 16:25 01/06/19 16:25 01/06/19 16:25 - Lungs Lungs: Clear Ascult./Percussion - Airway Airway: Non-obstructed - Cardiovascular Regular Rate - Mental Status Mental Status: Asleep with brisk response to light stimulation - Pain Pain Scale: 0 Pain Scale used: Numeric (1 - 10) - Nausea Vomiting Nausea Vomiting: Not Present - Hydration Hydration: Ice chips - Discharge PostOp Status: Transfer Patient to floor
[2019-01-06] MEDS ORDERED: 0.9 % Sodium Chloride 1,000 ML IVC SCH (17:00)
[2019-01-06] MEDS ORDERED: Dextrose Gel 15 GM/37.5 ML TUBE PO PRN ×2 (17:00)
[2019-01-06] MEDS ORDERED: D5% in Water 1,000 ML IVC PRN (17:00)
[2019-01-06] MEDS ORDERED: *HR* Dextrose 50 % in Water (Syg) 50 ML SYRINGE IVP PRN (17:00)
[2019-01-06] MEDS ORDERED: Naloxone 0.4 MG/ML INJ IVP PRN (17:00)
[2019-01-06] MEDS ORDERED: Nitroglycerin 0.4 MG TAB.SUBL SL PRN (17:00)
[2019-01-06] MEDS: *HR* Metformin 500 MG TABLET PO SCH (20:06)
[2019-01-06] MEDS ORDERED: Acetaminophen 325 MG TABLET PO ONE (23:13)
[2019-01-06] MEDS: Temazepam 15 MG CAPSULE PO SCH (23:32)
[2019-01-07 06:40] LABS: Basophils % 0.3 %; Eosinophils # 0.3 K/mcL (0.0-0.6); Eosinophils % 2.7 %; Immature Granulocytes % 0.5 % (0-4); Mean Corpuscular HGB Conc 31.7 g/dL (31.6-35.5); Mean Corpuscular Hemoglobin 27.8 pg (28.0-33.3); Mean Corpuscular Volume 87.5 fL (83.0-100.0); Mean Platelet Volume 10.4 fL (9.4-12.4); Monocytes # 0.6 K/mcL (0.0-1.3); Monocytes % 6.3 %; Platelet Count 111 K/mcL (140-400); Red Blood Count 2.63 M/mcL (3.82-4.97); Red Cell Distribution Width 15.6 % (11.5-14.5); Segmented Neutrophils % 60.2 %
[2019-01-07 06:48] LABS: Hemoglobin 7.3 g/dL (11.5-15.4)
[2019-01-07 06:59] LABS: BUN/Creatinine Ratio 16 (6-26); Blood Urea Nitrogen 11 mg/dL (8-23); Calcium 8.2 mg/dL (8.6-10.3); Carbon Dioxide 28 mEq/L (23-29); Chloride 104 mEq/L (98-107); Glucose 111 mg/dL (70-105); Osmolality,Calculated 288 (280-300); Potassium 3.5 mEq/L (3.5-5.1); Sodium 139 mEq/L (136-145); eGFR For African Americans > 60 (> 60); eGFR For Non-African Americans > 60 (> 60)
--- NOTE | 2019-01-07 07:43 | Orthopedics Progress Note ---
Date of Encounter: 01/07/19 Time of Encounter: 07:39 - Assessment and Plan (1) Fracture of femoral neck, closed Current Visit: Yes Status: Acute Qualifiers: Encounter type: initial encounter Laterality: left Qualified Code(s): S72.002A - Fracture of unspecified part of neck of left femur, initial encounter for closed fracture Subjective Interval history: S: Patient is seen today and has no complaints. O: Afebrile and vital signs are stable Operative extremity dressing is clean, dry, and intact. Neurovascularly intact distally Moderate output in the drain overnight A: Left hip hemiarthroplasty P: Resume postoperative care Young out today Drain out likely tomorrow Aspirin 325 mg daily for DVT prophylaxis Objective Vital signs: Vital Signs Temp Pulse Resp BP Pulse Ox 01/07/19 06:51 98.7 F 81 16 122/64 94 01/07/19 04:08 92 01/07/19 02:08 66 90/53 01/06/19 23:59 95/55 01/06/19 22:45 97.7 F 64 17 90/53 99 01/06/19 20:04 97.3 F L 74 16 100/41 97 01/06/19 19:00 69 16 97/59 01/06/19 18:01 97.9 F 70 12 94/52 92 01/06/19 17:30 98.2 F 71 14 104/49 94 01/06/19 17:00 97.8 F 75 14 115/52 91 01/06/19 16:45 98.0 F 75 16 124/48 97 01/06/19 16:35 75 16 105/49 93 01/06/19 16:25 75 16 111/49 93 01/06/19 16:15 99.6 F 72 16 107/47 95 01/06/19 11:58 98.4 F 73 16 128/70 95 01/06/19 09:00 99 Intake and Output 01/06/19 01/06/19 01/07/19 15:59 23:59 07:59 Intake Total 240 / 290 100 / 100 Output Total 50 / 500 300 / 300 Balance 190 / -210 -200 / -200 Intake: IV Fluids 100 / 100 Ancef 2,000 MG In 0.9 % Sodium 100 / 100 Chloride 100 ML @ 200 mls/hr IVPB Q8HR [facility] Rx#:[id number] Oral 240 / 240 Output: Catheter 300 / 300 Wound Drainage 50 / 50 Left Hip 50 / 50 Other: Meal Dinner Percent of Meal Consumed 25% Weight 59.6 kg Blood Glucose* 104 126 107 Patient Weight 01/07/19 23:59 Weight 59.6 kg - Labs CBC & BMP: 01/07/19 06:26 01/07/19 06:26 Labs: Abnormal lab results WBC 13.4 K/mcL (4.3-11.1) H 01/06/19 05:10 RBC 2.63 M/mcL (3.82-4.97) L 01/07/19 06:26 Hgb 7.3 g/dL (11.5-15.4) L D 01/07/19 06:26 Hct 23.0 % (35.3-44.9) L 01/07/19 06:26 MCH 27.8 pg (28.0-33.3) L 01/07/19 06:26 MCHC 30.8 g/dL (31.6-35.5) L 01/06/19 05:10 RDW 15.6 % (11.5-14.5) H 01/07/19 06:26 Plt Count 111 K/mcL (140-400) L 01/07/19 06:26 Lymphocytes # 5.9 K/mcL (0.6-4.6) H 01/05/19 04:05 Glucose 111 mg/dL (70-105) H 01/07/19 06:26 POC Glucose 126 mg/dL (70-99) H 01/06/19 19:43 Calcium 8.2 mg/dL (8.6-10.3) L 01/07/19 06:26 Urine Clarity Cloudy (Clear) A 01/06/19 05:07 Urine Blood Large (Negative) H 01/06/19 05:07 Urine Nitrite Positive (Negative) A 01/06/19 05:07 Ur Leukocyte Esterase Trace (Negative) H 01/06/19 05:07 Urine Microscopic RBC 15-30 per hpf (0-3) H 01/06/19 05:07 Urine Microscopic WBC 15-30 per hpf (0-3) H 01/06/19 05:07 Ur Squamous Epith Cells Moderate per lpf (None-Few) H 01/06/19 05:07 Urine Yeast Many per hpf (None Seen) H 01/06/19 05:07 Ur Culture Indicated? YES (NO) A 01/06/19 05:07 Consult Discharge Plan - Plan Referrals: NONE,PCP [Primary Care Provider] -
[2019-01-07] MEDS: *HR* OxyCODONE Immed Rel 5 MG TABLET PO PRN (08:00)
[2019-01-07] MEDS: Aspirin Enteric Coated 325 MG Tablet PO SCH (08:01)
[2019-01-07] MEDS: *HR* Metformin 500 MG TABLET PO SCH ×2 (08:01→20:48)
[2019-01-07] MEDS: Ondansetron 4 MG/2 ML VIAL IVP PRN (08:02)
[2019-01-07 08:36] LABS: Hematocrit 25.5 % (35.3-44.9)
[2019-01-07] MEDS ORDERED: Aspirin Enteric Coated 325 MG Tablet PO SCH (09:00)
[2019-01-07] MEDS: Insulin LISPRO 300 UNITS/3 ML VIAL SQ SCH ×3 (09:29→16:12)
--- NOTE | 2019-01-07 14:44 | Internal Med Progress Note ---
Hospitalist Progress Note - Encounter Date of Encounter: 01/07/19 Time of Encounter: 09:40 - Subjective Interval History: Patient seen and examined. States that she was able to sit by her bedside yesterday with the help of PT/OT but had a lot of pain. She denies chest pain, SOB, palpitations and lightheadedness. - Exam Vitals: Temp Pulse Resp BP Pulse Ox 37.3 C 75 16 100/54 95 01/07/19 11:33 01/07/19 11:33 01/07/19 11:33 01/07/19 11:33 01/07/19 11:33 Exam: GENERAL: Not in distress. Alert and Oriented HEENT: EOMI, PERRLA MOUTH: Mpoist oral mucosa CHEST AND LUNGS: Normal breath sounds, no wheezes or crackles HEART: S1 and S2 normal, no murmurs ABDOMEN: Soft, nontender, no organomegaly SKIN: Normal color, no rahses, no lesions EXTREMITIES: Clean dressing at surgical site. No evidence of active bleeding. NEUROLOGICAL: Normal cognition, normal motor and sensory exam. - Assessment and Plan (1) Fracture of femoral neck, closed Current Visit: Yes Status: Acute Assessment and Plan: POD 1 COmplains of painon moving PT/OT on board. Clean surgical dressing in place with drain in situ. Ortho following (2) Acute blood loss anemia Current Visit: Yes Status: Acute Assessment and Plan: Hemoglobin of 8.0g/dl this morning. Drpo from 9.1g/dl This is likely from blood loss from fracture site and intraop blood loss. Will monitor H and h. (3) CAD (coronary artery disease) Current Visit: No Status: Chronic Assessment and Plan: We will continue home medication include aspirin, statin, and metoprolol. (4) Diabetes Current Visit: No Status: Chronic Assessment and Plan: Continue low-dose sliding scale corrective insulin. (5) Hypertension Current Visit: No Status: Chronic Assessment and Plan: Continue metoprolol. (6) HLD (hyperlipidemia) Current Visit: Yes Status: Acute Assessment and Plan: Continue statin (7) GERD (gastroesophageal reflux disease) Current Visit: No Status: Chronic Assessment and Plan: Continue Prilosec (8) DVT prophylaxis Current Visit: No Status: Acute Assessment and Plan: Ortho recommends Aspirin 325mg daily for DVT prophylaxis. - Time Spent with Patient Total time spent is greater than 50% in coordination of care (as documented) at patient's floor/unit and/or counseling patient: Internal Medicine: Result - Labs CBC & Chem 7: 01/07/19 08:14 01/07/19 06:26 Labs: Short CBC 01/07/19 01/07/19 Range/Units 06:26 08:14 WBC 10.0 (4.3-11.1) K/mcL Hgb 7.3 L D 8.0 L (11.5-15.4) g/dL Hct 23.0 L 25.5 L (35.3-44.9) % Plt Count 111 L (140-400) K/mcL Neutrophils # 6.0 (1.6-8.9) K/mcL BMP 01/07/19 06:26 Sodium 139 Potassium 3.5 Chloride 104 Carbon Dioxide 28 BUN 11 Creatinine 0.68 Glucose 111 H Calcium 8.2 L - ABG Interpretation ABG results: PT/INR, D-dimer PT 11.6 Seconds (9.4-12.1) 01/04/19 17:33 - Impressions Impressions Hip X-Ray 01/06/19 16:53 IMPRESSION: Status post hemiarthroplasty of left hip as described above. D/ / 01/06/2019 17:11:10 Umer Singh MD / Yazmin Agosto Interpreting Provider: Umer Singh MD Consult Discharge Plan - Plan Referrals: NONE,PCP [Primary Care Provider] - (1) Fracture of femoral neck, closed Qualifiers: Encounter type: initial encounter Laterality: left Qualified Code(s): S72.002A - Fracture of unspecified part of neck of left femur, initial encounter for closed fracture (3) CAD (coronary artery disease) Qualifiers: Coronary Disease-Associated Artery/Lesion type: [place] artery [place] vs. transplanted heart: [place] heart Associated angina: with stable angina Qualified Code(s): I25.118 - Atherosclerotic heart disease of [place] coronary artery with other forms of angina pectoris (4) Diabetes Qualifiers: Diabetes mellitus type: type 2 Diabetes mellitus tank terminal gauger insulin use: w ithout tank terminal gauger use Diabetes mellitus complication status: without compli cation Qualified Code(s): E11.9 - Type 2 diabetes mellitus without complic ations (5) Hypertension Qualifiers: Hypertension type: essential hypertension Qualified Code(s): I10 - Essential (primary) hypertension (6) HLD (hyperlipidemia) Qualifiers: Hyperlipidemia type: unspecified Qualified Code(s): E78.5 - Hyperlipidemia, unspecified (7) GERD (gastroesophageal reflux disease) Qualifiers: Esophagitis presence: esophagitis presence not specified Qualified Code(s): K21.9 - Gastro-esophageal reflux disease without esophagitis
[2019-01-07] MEDS: Acetaminophen 325 MG TABLET PO PRN (17:26)
[2019-01-07] MEDS: Temazepam 15 MG CAPSULE PO SCH (22:09)
[2019-01-08] MEDS: Acetaminophen 325 MG TABLET PO PRN ×2 (02:39→10:08)
[2019-01-08 06:46] LABS: Basophils % 0.2 %; Eosinophils # 0.2 K/mcL (0.0-0.6); Eosinophils % 2.5 %; Hematocrit 19.5 % (35.3-44.9); Immature Granulocytes % 0.5 % (0-4); Lymphocytes # 2.7 K/mcL (0.6-4.6); Mean Corpuscular HGB Conc 30.8 g/dL (31.6-35.5); Mean Corpuscular Volume 87.8 fL (83.0-100.0); Mean Platelet Volume 11.4 fL (9.4-12.4); Monocytes # 0.8 K/mcL (0.0-1.3); Neutrophils # 5.6 K/mcL (1.6-8.9); Platelet Count 111 K/mcL (140-400); Red Blood Count 2.22 M/mcL (3.82-4.97); Red Cell Distribution Width 15.6 % (11.5-14.5); Segmented Neutrophils % 59.8 %; White Blood Count 9.4 K/mcL (4.3-11.1)
[2019-01-08 07:03] LABS: BUN/Creatinine Ratio 16 (6-26); Blood Urea Nitrogen 9 mg/dL (8-23); Calcium 7.8 mg/dL (8.6-10.3); Carbon Dioxide 26 mEq/L (23-29); Chloride 103 mEq/L (98-107); Glucose 128 mg/dL (70-105); Osmolality,Calculated 288 (280-300); Potassium 3.4 mEq/L (3.5-5.1); Sodium 139 mEq/L (136-145); eGFR For African Americans > 60 (> 60); eGFR For Non-African Americans > 60 (> 60)
--- NOTE | 2019-01-08 07:43 | Orthopedics Progress Note ---
Date of Encounter: 01/08/19 Time of Encounter: 07:41 - Assessment and Plan (1) Fracture of femoral neck, closed Current Visit: Yes Status: Acute Qualifiers: Encounter type: initial encounter Laterality: left Qualified Code(s): S72.002A - Fracture of unspecified part of neck of left femur, initial encounter for closed fracture Subjective Interval history: S: Patient is seen today and has no complaints. O: Afebrile currently and vital signs are stable; Febrile last night. About 50 mL out and the drain in 12 hours. Drain pulled. Wound is clean, dry, and intact. Neurovascularly intact distally A: Left hip hemiarthroplasty P: Resume postoperative care Aspirin 325 mg daily for DVT prophylaxis Therapy Acute blood loss anemia from surgery; transfuse 2 units of packed red blood cells today Objective Vital signs: Vital Signs Temp Pulse Resp BP Pulse Ox 01/08/19 07:24 98.9 F 87 16 120/65 95 01/08/19 04:32 99.3 F 90 16 110/68 93 01/07/19 23:48 99.8 F H 88 16 118/67 94 01/07/19 19:15 99.4 F 84 16 106/42 94 01/07/19 17:32 101.2 F H 01/07/19 15:57 101.0 F H 93 16 128/62 95 01/07/19 11:33 99.1 F 75 16 100/54 95 Intake and Output 01/07/19 01/07/19 01/08/19 15:59 23:59 07:59 Intake Total 220 / 820 500 / 820 0 / 0 Output Total 30 / 370 40 / 370 0 / 0 Balance 190 / 450 460 / 450 0 / 0 Intake: IV Fluids 100 / 300 100 / 300 Ancef 2,000 MG In 0.9 % Sodium 100 / 300 100 / 300 Chloride 100 ML @ 200 mls/hr IVPB Q8HR [facility] Rx#:[id number] Oral 120 / 520 400 / 520 0 / 0 Output: Urine 0 / 0 0 / 0 Wound Drainage 40 / 70 Left Hip 30 40 / 70 Other: Meal Lunch Percent of Meal Consumed 100% Weight 60.2 kg Blood Glucose* 122 132 129 Patient Weight 01/08/19 23:59 Weight 60.2 kg - Labs CBC & BMP: 01/08/19 06:06 01/08/19 06:06 Labs: Abnormal lab results WBC 13.4 K/mcL (4.3-11.1) H 01/06/19 05:10 RBC 2.22 M/mcL (3.82-4.97) L 01/08/19 06:06 Hgb 6.0 g/dL (11.5-15.4) L* D 01/08/19 06:06 Hct 19.5 % (35.3-44.9) L 01/08/19 06:06 MCH 27.0 pg (28.0-33.3) L 01/08/19 06:06 MCHC 30.8 g/dL (31.6-35.5) L 01/08/19 06:06 RDW 15.6 % (11.5-14.5) H 01/08/19 06:06 Plt Count 111 K/mcL (140-400) L 01/08/19 06:06 Lymphocytes # 5.9 K/mcL (0.6-4.6) H 01/05/19 04:05 Potassium 3.4 mEq/L (3.5-5.1) L 01/08/19 06:06 Creatinine 0.57 mg/dL (0.60-1.20) L 01/08/19 06:06 Glucose 128 mg/dL (70-105) H 01/08/19 06:06 POC Glucose 132 mg/dL (70-99) H 01/07/19 20:06 Calcium 7.8 mg/dL (8.6-10.3) L 01/08/19 06:06 Urine Clarity Cloudy (Clear) A 01/06/19 05:07 Urine Blood Large (Negative) H 01/06/19 05:07 Urine Nitrite Positive (Negative) A 01/06/19 05:07 Ur Leukocyte Esterase Trace (Negative) H 01/06/19 05:07 Urine Microscopic RBC 15-30 per hpf (0-3) H 01/06/19 05:07 Urine Microscopic WBC 15-30 per hpf (0-3) H 01/06/19 05:07 Ur Squamous Epith Cells Moderate per lpf (None-Few) H 01/06/19 05:07 Urine Yeast Many per hpf (None Seen) H 01/06/19 05:07 Ur Culture Indicated? YES (NO) A 01/06/19 05:07 Crossmatch See Detail 01/06/19 14:25 Consult Discharge Plan - Plan Referrals: NONE,PCP [Primary Care Provider] -
[2019-01-08] MEDS: Insulin LISPRO 300 UNITS/3 ML VIAL SQ SCH ×3 (07:57→17:43)
[2019-01-08] MEDS: *HR* Metformin 500 MG TABLET PO SCH ×2 (07:58→20:50)
[2019-01-08] MEDS: Aspirin Enteric Coated 325 MG Tablet PO SCH (07:58)
[2019-01-08] MEDS ORDERED: 0.9 % Sodium Chloride 250 ML ONE ×2 (10:00→16:27)
--- NOTE | 2019-01-08 12:25 | Internal Med Progress Note ---
Hospitalist Progress Note - Encounter Date of Encounter: 01/08/19 Time of Encounter: 07:55 - Subjective Interval History: Patient had some temperature spikes last evening. She currently denies fever,chills cough, shortness of breath, chest pain and pain at surgical site. - Exam Vitals: Temp Pulse Resp BP Pulse Ox 36.8 C 77 16 118/68 98 01/08/19 10:37 01/08/19 10:37 01/08/19 10:37 01/08/19 10:37 01/08/19 10:37 Exam: GENERAL: Not in distress. Alert and Oriented HEENT: EOMI, PERRLA MOUTH: Moist oral mucosa CHEST AND LUNGS: Normal breath sounds, no wheezes or crackles HEART: S1 and S2 normal, no murmurs ABDOMEN: Soft, nontender, no organomegaly SKIN: Normal color, no rahses, no lesions EXTREMITIES: Clean dressing at surgical site. No evidence of active bleeding. NEUROLOGICAL: Normal cognition, normal motor and sensory exam. - Assessment and Plan (1) Acute blood loss anemia Current Visit: Yes Status: Acute Assessment and Plan: Hemoglobin of 6.0 g/dL today Patient to be transfused with 2 units of PRBCs No active bleeding observed We will monitor H&H Orthopedic surgery following. (2) Fracture of femoral neck, closed Current Visit: Yes Status: Acute Assessment and Plan: POD 2 Patient denies pain PT/OT on board. Clean surgical dressing in place. Ortho following (3) CAD (coronary artery disease) Current Visit: No Status: Chronic Assessment and Plan: We will continue home medication include aspirin, statin, and metoprolol. (4) Diabetes Current Visit: No Status: Chronic Assessment and Plan: Continue low-dose sliding scale corrective insulin. (5) Hypertension Current Visit: No Status: Chronic Assessment and Plan: Continue metoprolol. (6) HLD (hyperlipidemia) Current Visit: Yes Status: Acute Assessment and Plan: Continue statin (7) Fever Current Visit: Yes Status: Acute Assessment and Plan: Patient spiked fevers after surgery. Temperature peaks seem to be dropping Currently no evidence of infection: No leukocytosis, no chest pain, shortness of breath and no palpitations. As mainly related to atelectasis Patient counseled to use her incentive spirometer. We will continue to monitor vitals. (8) GERD (gastroesophageal reflux disease) Current Visit: No Status: Chronic Assessment and Plan: Continue Prilosec (9) DVT prophylaxis Current Visit: No Status: Acute Assessment and Plan: Ortho recommends Aspirin 325mg daily for DVT prophylaxis. - Time Spent with Patient Total time spent is greater than 50% in coordination of care (as documented) at patient's floor/unit and/or counseling patient: Internal Medicine: Result - Labs CBC & Chem 7: 01/08/19 06:06 01/08/19 06:06 Labs: Short CBC 01/08/19 Range/Units 06:06 WBC 9.4 (4.3-11.1) K/mcL Hgb 6.0 L* D (11.5-15.4) g/dL Hct 19.5 L (35.3-44.9) % Plt Count 111 L (140-400) K/mcL Neutrophils # 5.6 (1.6-8.9) K/mcL BMP 01/08/19 06:06 Sodium 139 Potassium 3.4 L Chloride 103 Carbon Dioxide 26 BUN 9 Creatinine 0.57 L Glucose 128 H Calcium 7.8 L - ABG Interpretation ABG results: PT/INR, D-dimer PT 11.6 Seconds (9.4-12.1) 01/04/19 17:33 - Impressions Impressions Hip X-Ray 01/06/19 16:53 IMPRESSION: Status post hemiarthroplasty of left hip as described above. D/ / 01/06/2019 17:11:10 Umer Singh MD / Yazmin Agosto Interpreting Provider: Umer Singh MD Consult Discharge Plan - Plan Referrals: NONE,PCP [Primary Care Provider] - (2) Fracture of femoral neck, closed Qualifiers: Encounter type: initial encounter Laterality: left Qualified Code(s): S72.002A - Fracture of unspecified part of neck of left femur, initial encounter for closed fracture (3) CAD (coronary artery disease) Qualifiers: Coronary Disease-Associated Artery/Lesion type: [place] artery [place] vs. transplanted heart: [place] heart Associated angina: with stable angina Qualified Code(s): I25.118 - Atherosclerotic heart disease of [place] coronary artery with other forms of angina pectoris (4) Diabetes Qualifiers: Diabetes mellitus type: type 2 Diabetes mellitus mcc insulin use: without intermediate designer use Diabetes mellitus complication status: without complication Qualified Code(s): E11.9 - Type 2 diabetes mellitus without complications (5) Hypertension Qualifiers: Hypertension type: essential hypertension Qualified Code(s): I10 - Essential (primary) hypertension (6) HLD (hyperlipidemia) Qualifiers: Hyperlipidemia type: unspecified Qualified Code(s): E78.5 - Hyperlipidemia, unspecified (7) Fever Qualifiers: Fever type: post-procedural Qualified Code(s): R50.82 - Postprocedural fever (8) GERD (gastroesophageal reflux disease) Qualifiers: Esophagitis presence: esophagitis presence not specified Qualified Code(s): K21.9 - Gastro-esophageal reflux disease without esophagitis
[2019-01-08] MEDS: *HR* OxyCODONE Immed Rel 5 MG TABLET PO PRN (20:49)
[2019-01-08] MEDS: Temazepam 15 MG CAPSULE PO SCH (22:25)
[2019-01-08] MEDS: Ondansetron 4 MG/2 ML VIAL IVP PRN (22:25)
[2019-01-09 05:49] LABS: Basophils % 0.4 %; Eosinophils # 0.4 K/mcL (0.0-0.6); Hematocrit 26.3 % (35.3-44.9); Immature Granulocytes % 0.3 % (0-4); Lymphocytes # 4.2 K/mcL (0.6-4.6); Lymphocytes % 39.7 %; Mean Corpuscular HGB Conc 32.3 g/dL (31.6-35.5); Mean Corpuscular Hemoglobin 28.1 pg (28.0-33.3); Mean Corpuscular Volume 87.1 fL (83.0-100.0); Mean Platelet Volume 11.1 fL (9.4-12.4); Monocytes # 0.6 K/mcL (0.0-1.3); Monocytes % 5.6 %; Neutrophils # 5.3 K/mcL (1.6-8.9); Platelet Count 126 K/mcL (140-400); Red Blood Count 3.02 M/mcL (3.82-4.97); Red Cell Distribution Width 15.1 % (11.5-14.5); White Blood Count 10.6 K/mcL (4.3-11.1)
[2019-01-09 05:50] LABS: Hemoglobin 8.5 g/dL (11.5-15.4)
[2019-01-09 06:13] LABS: BUN/Creatinine Ratio 15 (6-26); Blood Urea Nitrogen 8 mg/dL (8-23); Calcium 8.1 mg/dL (8.6-10.3); Carbon Dioxide 25 mEq/L (23-29); Chloride 105 mEq/L (98-107); Glucose 106 mg/dL (70-105); Osmolality,Calculated 291 (280-300); Potassium 3.4 mEq/L (3.5-5.1); Sodium 141 mEq/L (136-145); eGFR For African Americans > 60 (> 60); eGFR For Non-African Americans > 60 (> 60)
--- NOTE | 2019-01-09 07:31 | Orthopedics Progress Note ---
Date of Encounter: 01/09/19 Time of Encounter: 07:30 - Assessment and Plan (1) Fracture of femoral neck, closed Current Visit: Yes Status: Acute Qualifiers: Encounter type: initial encounter Laterality: left Qualified Code(s): S72.002A - Fracture of unspecified part of neck of left femur, initial encounter for closed fracture Subjective Interval history: S: Patient is seen today and has no complaints. O: Afebrile currently and vital signs are stable Wound is clean, dry, and intact. Neurovascularly intact distally A: Left hip hemiarthroplasty P: Resume postoperative care Aspirin 325 mg daily for DVT prophylaxis Therapy Orthopedically stable for discharge Objective Vital signs: Vital Signs Temp Pulse Pulse Pulse Resp BP Pulse Ox 01/09/19 07:13 99.1 F 83 16 128/72 92 01/09/19 03:56 99.3 F 81 20 122/73 96 01/08/19 22:37 98.3 F 83 20 117/70 93 01/08/19 20:20 76 76 01/08/19 19:03 99.3 F 79 20 128/63 96 01/08/19 18:37 98.7 F 81 14 120/68 97 01/08/19 16:52 98.0 F 73 14 117/70 96 01/08/19 16:37 97.9 F 76 16 120/64 96 01/08/19 12:44 98.4 F 74 15 118/75 96 01/08/19 10:37 98.3 F 77 16 118/68 98 01/08/19 10:24 97.4 F L 76 14 116/63 96 01/08/19 09:27 98.3 F 80 16 116/66 95 Intake and Output 01/08/19 01/08/19 01/09/19 15:59 23:59 07:59 Intake Total 530 / 1290 760 / 1290 350 / 350 Output Total 50 / 50 Balance 480 / 1240 760 / 1240 350 / 350 Intake: Oral 180 / 590 410 / 590 350 / 350 Blood Product 350 / 700 350 / 700 Rbcs Leuko Poor As-3 2nd Unit 350 / 350 [id number] Rbcs Leuko Poor As-3 2nd Unit 350 / 350 [id number] Output: Urine 0 / 0 Wound Drainage 50 / 50 Left Hip 50 / 50 Other: Meal Lunch Dinner Percent of Meal Consumed 80% 5% # Voids 2 Weight 60.3 kg Blood Glucose* 144 138 107 Patient Weight 01/09/19 23:59 Weight 60.3 kg - Labs CBC & BMP: 01/09/19 04:24 01/09/19 04:24 Labs: Abnormal lab results WBC 13.4 K/mcL (4.3-11.1) H 01/06/19 05:10 RBC 3.02 M/mcL (3.82-4.97) L 01/09/19 04:24 Hgb 8.5 g/dL (11.5-15.4) L D 01/09/19 04:24 Hct 26.3 % (35.3-44.9) L 01/09/19 04:24 MCH 27.0 pg (28.0-33.3) L 01/08/19 06:06 MCHC 30.8 g/dL (31.6-35.5) L 01/08/19 06:06 RDW 15.1 % (11.5-14.5) H 01/09/19 04:24 Plt Count 126 K/mcL (140-400) L 01/09/19 04:24 Lymphocytes # 5.9 K/mcL (0.6-4.6) H 01/05/19 04:05 Potassium 3.4 mEq/L (3.5-5.1) L 01/09/19 04:24 Creatinine 0.55 mg/dL (0.60-1.20) L 01/09/19 04:24 Glucose 106 mg/dL (70-105) H 01/09/19 04:24 POC Glucose 138 mg/dL (70-99) H 01/08/19 21:06 Calcium 8.1 mg/dL (8.6-10.3) L 01/09/19 04:24 Urine Clarity Cloudy (Clear) A 01/06/19 05:07 Urine Blood Large (Negative) H 01/06/19 05:07 Urine Nitrite Positive (Negative) A 01/06/19 05:07 Ur Leukocyte Esterase Trace (Negative) H 01/06/19 05:07 Urine Microscopic RBC 15-30 per hpf (0-3) H 01/06/19 05:07 Urine Microscopic WBC 15-30 per hpf (0-3) H 09/17/19 05:07 Ur Squamous Epith Cells Moderate per lpf (None-Few) H 01/06/19 05:07 Urine Yeast Many per hpf (None Seen) H 01/06/19 05:07 Ur Culture Indicated? YES (NO) A 01/06/19 05:07 Crossmatch See Detail 01/06/19 14:25 Consult Discharge Plan - Plan Additional Instructions: DISCHARGE INSTRUCTIONS Dr. Winslow Total Hip Replacement/Hip Hemiarthroplasty Wound Care -Change the dressing daily with ABD pads and either paper tape or Medipore tape. Activity -No heavy lifting objects greater than 10 pounds. -No driving while on narcotic pain medication. -You may be weight-bear as tolerated on both of your lower extremities. -Use crutches or a walker for ambulation. -Posterior hip precautions for 6 weeks: No bending the hip past 90 degrees. Do not allow the leg to cross the midline of your body (adduction). No twisting motions. Ask your physical therapist to review these precautions with you. Reducing the Risk of Blood Clots -You will need to complete a total 4 week course of enteric coated aspirin 325 mg daily. Discharge Pain Medications -Per the hospitalist Follow-Up -Follow-up with Dr. Winslow office in 2 weeks from the surgery date for a post- operative evaluation. -Call the office at [phone] to schedule or confirm your appointment. -Follow up with your primary care physician to discuss testing for bone mineral density. Referrals: NONE,PCP [Primary Care Provider] -
[2019-01-09] MEDS ORDERED: Metoprolol XL (24 HR) Succ 25 MG TAB.ER.24H PO SCH (09:00)
[2019-01-09] MEDS: Insulin LISPRO 300 UNITS/3 ML VIAL SQ SCH ×3 (10:16→17:35)
--- NOTE | 2019-01-09 10:22 | Discharge Summary ---
Date of Encounter: 01/09/19 Time of Encounter: 10:14 - Discharge Diagnosis (1) Fracture of femoral neck, closed Priority: Primary Status: Acute Qualifiers: Encounter type: initial encounter Laterality: left Qualified Code(s): S72.002A - Fracture of unspecified part of neck of left femur, initial encounter for closed fracture (2) Acute blood loss anemia Priority: Secondary Status: Acute (3) CAD (coronary artery disease) Priority: Secondary Status: Chronic Qualifiers: Coronary Disease-Associated Artery/Lesion type: red devil artery [place] vs. transplanted heart: red devil heart Associated angina: with stable angina Qualified Code(s): I25.118 - Atherosclerotic heart disease of red devil coronary artery with other forms of angina pectoris (4) Diabetes Priority: Secondary Status: Chronic Qualifiers: Diabetes mellitus type: type 2 Diabetes mellitus penitentiary insulin use: without longwall machine operator helper use Diabetes mellitus complication status: without complication Qualified Code(s): E11.9 - Type 2 diabetes mellitus without complications (5) Hypertension Priority: Secondary Status: Chronic Qualifiers: Hypertension type: essential hypertension Qualified Code(s): I10 - Essential (primary) hypertension (6) HLD (hyperlipidemia) Priority: Secondary Status: Acute Qualifiers: Hyperlipidemia type: unspecified Qualified Code(s): E78.5 - Hyperlipidemia, unspecified (7) Fever Priority: Secondary Status: Acute Qualifiers: Fever type: post-procedural Qualified Code(s): R50.82 - Postprocedural fever (8) GERD (gastroesophageal reflux disease) Priority: Secondary Status: Chronic Qualifiers: Esophagitis presence: esophagitis presence not specified Qualified Code(s): K21.9 - Gastro-esophageal reflux disease without esophagitis (9) DVT prophylaxis Priority: Secondary Status: Acute Hospital course: Ms. Prescott is a 78 year old female who presented with a left femoral neck fracture after falling on her left side. She had orthopedic surgery intervention and postop period was complicated by anemia with Hb of 6.0 g/dL. She received 2 units of packed cells and hemoglobin has remained stable. No evidence of active bleeding at surgical site and patient currently has no complaints. She will be transferred [place] a [place] [facility] facility for physical rehabilitation. Discharge discussed with: patient, family, nurse, social work, case management (45 minutes), reservoir engineering consultant - Time Spent with Patient Total time spent providing and/or coordinating discharge services: - Discharge Medications Prescriptions: New Aspirin Enteric Coated [Aspirin EC] 325 mg PO DAILY #28 tablet. OxyCODONSharon Immed Rel [Roxicodone 5 MG] 5 mg PO Q4HR PRN 4 Days #24 tablet PRN Reason: SEVERE PAIN (7-10) Continued Metformin [Glucophage] 500 mg PO BID Atorvastatin [Lipitor] 40 mg PO HS Nitroglycerin [Nitrostat] 0.4 mg SL Q5MIN PRN PRN Reason: Chest Pain Sertraline [Zoloft] 100 mg PO DAILY Levothyroxine [Synthroid] 50 mcg PO QAM Temazepam [Restoril] 15 mg PO HS PRN PRN Reason: Sleep Cephalexin [Keflex] 250 mg PO DAILY Omeprazole [PriLOSEC] 40 mg PO DAILY Potassium Chloride [Klor-Con 10] 10 meq PO DAILY Metoprolol Succinate [Toprol Xl] 25 mg PO DAILY Discontinued Aspirin Enteric Coated [Aspirin EC] 81 mg PO QAM Home Medications: Metformin [Glucophage] 500 mg PO BID 02/16/15 [History] Atorvastatin [Lipitor] 40 mg PO HS 05/15/18 [History] Levothyroxine [Synthroid] 50 mcg PO QAM 05/15/18 [History] Nitroglycerin [Nitrostat] 0.4 mg SL Q5MIN PRN 05/15/18 [History] Sertraline [Zoloft] 100 mg PO DAILY 05/15/18 [History] Temazepam [Restoril] 15 mg PO HS PRN 05/15/18 [History] Cephalexin [Keflex] 250 mg PO DAILY 12/02/18 [History] Omeprazole [PriLOSEC] 40 mg PO DAILY 12/02/18 [History] Potassium Chloride [Klor-Con 10] 10 meq PO DAILY 12/02/18 [History] Metoprolol Succinate [Toprol Xl] 25 mg PO DAILY 01/04/19 [History] Aspirin Enteric Coated [Aspirin EC] 325 mg PO DAILY #28 tablet. 01/09/19 [Rx] OxyCODONE Immed Rel [Roxicodone 5 MG] 5 mg PO Q4HR PRN 4 Days #24 tablet 01/09/19 [Rx] Allergies/Adverse Reactions: Allergy/AdvReac Type Severity Reaction Status Date / Time Sulfa (Sulfonamide Allergy Anaphylaxis Verified 02/16/15 20:06 Antibiotics) isosorbide [From Imdur] AdvReac Headache Verified 12/02/18 08:34 Date of admission: 01/04/19 18:29 Primary care physician: PCP NONE Consults: 01/04/19 18:25 Consult to Orthopedic Surgery [CONS] Stat Consulting Provider: [facility] Reason for Consult: Left femoral fracture Call Completed: Yes 01/06/19 16:21 Consult to Occupational Therapy [CONS] Routine Comment: Evaluate, develop and implement POC Reason for Consult: total hip replacement Does patient have active BEDREST order?: No Is patient medically & hemodynamically stable?: Yes Consult to Physical Therapy [CONS] Routine Comment: Evaluate, develop and implement POC Reason for Consult: total hip replacement Does patient have active BEDREST order?: No Is patient medically & hemodynamically stable?: Yes Consult to Head Custodian [CONS] Routine Reason for SW Consult: post op joint replacement - Constitutional Vitals: Temp Pulse Resp BP Pulse Ox 37.3 C 83 16 128/72 92 01/09/19 07:13 01/09/19 07:13 01/09/19 07:13 01/09/19 07:13 01/09/19 07:13 General appearance: Present: cooperative, A&O X 3 Exam: GENERAL: Not in distress. Alert and Oriented HEENT: EOMI, PERRLA MOUTH: Good oral hygiene NECK:No JVD, No lymph nodes. CHEST AND LUNGS: Normal breath sounds, no wheezes or crackles HEART: S1 and S2 normal, no murmurs ABDOMEN: Soft, nontender, no organomegaly SKIN: Normal color, no rahses, no lesions EXTREMITIES: No evidence of active bleed or hematoma formation at surgical site. NEUROLOGICAL: Normal cognition, normal motor and sensory exam. - Patient Status Disposition: Transfer SNF Condition: Fair Functional capacity at discharge: uses cane/walker (walker) Overall status at discharge: patient is progressing back to baseline - Discharge Instructions Follow Up With: NONE,PCP [Primary Care Provider] - Lorenzo Winslow MD [Partnered Physician] - Forms: ED Satisfaction Letter Additional Instructions: DISCHARGE INSTRUCTIONS Dr. Winslow Total Hip Replacement/Hip Hemiarthroplasty Wound Care -Change the dressing daily with ABD pads and either paper tape or Medipore tape. Activity -No heavy lifting objects greater than 10 pounds. -No driving while on narcotic pain medication. -You may be weight-bear as tolerated on both of your lower extremities. -Use crutches or a walker for ambulation. -Posterior hip precautions for 6 weeks: No bending the hip past 90 degrees. Do not allow the leg to cross the midline of your body (adduction). No twisting motions. Ask your physical therapist to review these precautions with you. Reducing the Risk of Blood Clots -You will need to complete a total 4 week course of enteric coated aspirin 325 mg daily. Discharge Pain Medications -Per the hospitalist Follow-Up -Follow-up with Dr. Winslow office in 2 weeks from the surgery date for a post- operative evaluation. -Call the office at [phone] to schedule or confirm your appointment. -Follow up with your primary care physician to discuss testing for bone mineral density. - Diet and Activity Activity: as per physical therapy Diet: advance to your usual diet
[2019-01-09] MEDS: *HR* Metformin 500 MG TABLET PO SCH (10:25)
[2019-01-09] MEDS: Aspirin Enteric Coated 325 MG Tablet PO SCH (10:25)
--- NOTE | 2019-01-09 10:33 | Physician Discharge Referral ---
ExtendedCare Referral Info Transfer To: SNF Institutional Level of Care: Skilled - Diagnosis (1) Fracture of femoral neck, closed Priority: Primary Status: Acute (2) Acute blood loss anemia Priority: Secondary Status: Acute (3) CAD (coronary artery disease) Priority: Secondary Status: Chronic (4) Diabetes Priority: Secondary Status: Chronic (5) Hypertension Priority: Secondary Status: Chronic (6) HLD (hyperlipidemia) Priority: Secondary Status: Acute (7) Fever Priority: Secondary Status: Acute (8) GERD (gastroesophageal reflux disease) Priority: Secondary Status: Chronic (9) DVT prophylaxis Priority: Secondary Status: Acute - Transfer Medications Prescriptions: Aspirin Enteric Coated [Aspirin EC] 325 mg PO DAILY #28 tablet. Transmission Status: Sent to [facility]/pharmacy #[id number] OxyCODONE Immed Rel [Roxicodone 5 MG] 5 mg PO Q4HR PRN 4 Days #24 tablet PRN Reason: SEVERE PAIN (7-10) Prescription Printed Home Medications: Metformin [Glucophage] 500 mg PO BID 02/16/15 [History] Atorvastatin [Lipitor] 40 mg PO HS 05/15/18 [History] Levothyroxine [Synthroid] 50 mcg PO QAM 05/15/18 [History] Nitroglycerin [Nitrostat] 0.4 mg SL Q5MIN PRN 05/15/18 [History] Sertraline [Zoloft] 100 mg PO DAILY 05/15/18 [History] Temazepam [Restoril] 15 mg PO HS PRN 05/15/18 [History] Cephalexin [Keflex] 250 mg PO DAILY 12/02/18 [History] Omeprazole [PriLOSEC] 40 mg PO DAILY 12/02/18 [History] Potassium Chloride [Klor-Con 10] 10 meq PO DAILY 12/02/18 [History] Metoprolol Succinate [Toprol Xl] 25 mg PO DAILY 01/04/19 [History] Aspirin Enteric Coated [Aspirin EC] 325 mg PO DAILY #28 tablet. 01/09/19 [Rx] OxyCODONE Immed Rel [Roxicodone 5 MG] 5 mg PO Q4HR PRN 4 Days #24 tablet 01/09/19 [Rx] Allergies/Adverse Reactions: Allergy/AdvReac Type Severity Reaction Status Date / Time Sulfa (Sulfonamide Allergy Anaphylaxis Verified 02/16/15 20:06 Antibiotics) isosorbide [From Imdur] AdvReac Headache Verified 12/02/18 08:34 - Respiratory Orders Smoking Cessation: Smoking cessation has been advised. For more information, call the [place] Tobacco Quit Line at 6-732-PRUK-NOW. - Rehabiliation Orders Rehab Orders: Evaluation for Physical Therapy, Evaluation for Occupational Therapy CERTIFICATION: I certify that the transfer of the above named patient to an Extended Care Facility is necessary for the continuing treatment of the diagnosis listed. The above information is true and accurate reflection of patient's current condition. Confidential - Redisclosure prohibited without a patient's written consent.
[2019-01-09 15:49] VITALS: BP 111/69
[2019-01-09] MEDS ORDERED: FLU Vac QV 19-20 (6Month+)/PF 0.5 ML SYRINGE IM ONE (15:49)
[2019-01-09] MEDS: *HR* OxyCODONE Immed Rel 5 MG TABLET PO PRN (16:57)
[2019-01-09] MEDS: Temazepam 15 MG CAPSULE PO SCH (18:15)
== END 2019-01-09 19:00 | DRG 470 ==
LOC: EMEROOARM 16:03 → SUATTDRO 18:29 → 3NENU 18:29
PROVIDERS: ADMIT Internal Medicine; ATTEND Internal Medicine